=== PATIENT | female | born 1995 | race Caucasian/White ===

== ENCOUNTER 2021-01-12 11:45 | Outpatient (REF) | payer OTHER, SELFPAY ==
[2021-01-13 10:32] LABS: BV Int Neg Control Negative (Negative); BV Int Pos Control Positive (Positive)
== END 2021-01-12 11:46 | disposition home or self-care (01) ==
LOC: HO.LNP 11:45
PROVIDERS: Visit Provider Hospitalist
DX: N89.8 Other specified noninflammatory disorders of vagina (principal)
CPT/HCPCS: 87480; 87510; 87660

== ENCOUNTER 2021-01-27 14:44 | Emergency (ER) | payer OTHER, SELFPAY ==
[2021-01-27 15:01] VITALS: BP 137/95; PULSE 80; RESP 20; TEMP 36.6; O2SAT 97; BMI 28.7
[2021-01-27 16:13] LABS: Appearance Urine CLEAR; Color Urine YELLOW; Glucose Urine UA NEG (NEG); Leukocyte Esterase Urine NEG (NEG); Nitrite Urine NEG (NEG); Specific Gravity - Urine 1.015 (1.005-1.025); UACC Culture Trigger NO; Urine Blood TRACE (NEG); Urine Ketones NEG (NEG); Urine Protein NEG (NEG-TRACE)
[2021-01-27 16:15] LABS: UPreg QC Valid YES; Urine Pregnancy NEGATIVE (NEGATIVE)
[2021-01-27 16:22] LABS: Bacteria Urine TRACE /LPF; Mucus Urine 1+ /LPF; Squamous Epithelial Cell Urine 1+ /LPF; WBC Urine 0 /HPF (0-4)
--- NOTE | 2021-01-27 16:34 | ED_ITS ---
HPI - Female Genitourinary General Chief complaint: Urogenital-Female Stated complaint: ABD PAIN Time Seen by Provider: 01/27/21 16:20 Source: patient Mode of arrival: ambulatory History of Present Illness HPI Narrative: 25-year-old female with no significant past medical history presenting to the ED complaining of intermittent LLQ abdominal pain radiating to left groin x3 days. Admits to associated nausea. Also reports vaginal dischar ge. Is sexually active with 1 partner, does have concern for STI. Denies fever, chills, vomiting, new or worsening diarrhea/constipation, dysuria/hematuria, vaginal bleeding, flank pain Related Data Previous Rx's Medication Instructions Recorded fluconazole 150 mg tablet 150 mg PO Q OTHER DAY 3 Days #2 tab 01/12/21 doxycycline hyclate 100 mg tablet 100 mg PO BID 7 Days #14 tab 01/27/21 fluconazole 150 mg tablet 150 mg PO DAILY #1 tab 01/27/21 (Diflucan) Allergies Allergy/AdvReac Type Severity Reaction Status Date / Time No Known Allergies Allergy Unverified 02/06/20 17:02 [No Known Allergies*] Review of Systems Review of Systems: Constitutional: No Fever, No Chills, No Fatigue, No [place] ENT/Mouth: No Ear Pain, No sore throat Eyes: No Eye Pain, No Swelling Cardiovascular: No Chest Pain, No SOB Respiratory: No Cough, No Dyspnea Gastrointestinal: + Nausea, No Vomiting, No Diarrhea, No Constipation, + Abdominal pain Genitourinary: No irregular bleeding, No Dysuria, No Urinary Frequency, No Hematuria, No Flank Pain, + vaginal discharge Musculoskeletal: No joint pain, No Myalgias Skin: No Skin Lesions, No rash Neuro: No Weakness, No Paresthesias, No Dizziness, No Headache [facility] Past Medical History Attestation statement: The following information was validated with the patient. Social History Social History Alcohol intake: never Patient Tobacco Use Status: Never used Tobacco Use of substances other than those prescribed or required for medical reasons: No Advance Directives: No Advance Directives Information Provided: No Physical Exam Vital Signs: Vital Signs: Last Vital Signs Temp 97.8 F 01/27/21 15:01 Pulse 80 01/27/21 15:01 Resp 20 09/08/21 15:01 BP 137/95 H 01/27/21 15:01 Pulse Ox 97 01/27/21 15:01 Body Mass Index 28.7 Const: General: cooperative, healthy appearing and no acute distress Orientation/consciousness: patient oriented x3 Limitations: no limitations HENMT: Head: Yes normal to inspection Ears: hearing grossly normal bilaterally General nose exam: Normal external nose present Face and sinu s: Yes normal facial exam Eyes: General: appearance normal, both eyes and all related structures EOM: EOMs intact bilaterally Neck: Neck: Yes normal visual inspection Resp: Effort & Inspection: normal respiratory effort and no respiratory distress Cardio: Rate: regular rate Heart sounds: S1 normal heart sound present and S2 normal heart sound present GI: Inspection: Yes normal to inspection Palpation (GI): Soft to palpation, nontender, no guarding and not rigid : General: Yes no CVA tenderness Speculum Exam - Cervix: nontender Bimanual exam- vagina & uterus: normal bimanual exam and No Cervical tenderness present Bimanual Exam- Adnexa, other: normal adnexae, no masses and no tenderness OB/external & speculum: vaginal discharge (thin clear and thick white vaginal discharge noted); No no bleeding Back/Spine/Pelvis: Back: no CVA tenderness Skin: Rashes: no rashes Wounds: no wounds Neuro: General: patient oriented x3 Gait exam (Neuro): Normal gait present Extrem: General: Yes normal to inspection Course Course Course Narrative: -1800--no leukocytosis. Labs otherwise unremarkable. UA negative. Urine negative. > discussed with patient including worrisome signs and symptoms and strict ret urn precautions. Discussed with patient she needs to follow up with PCP/OBGYN. She verbalized understanding feel safe for discharge home MDM - Female Genitourinary MDM Narrative Medical decision making narrative: 25-year-old female with no significant past medical history presenting to the ED complaining of intermittent LLQ abdominal pain radiating to left groin x3 days. Admits to associated nausea. Also reports vaginal discharge. Is sexually active with 1 partner, does have concern for STI. On exam VS as, NAD, abdomen soft/nontender, no CVAT. On pelvic thin clear and thick white vaginal discharge noted. No CMT or adnexal tenderness. Concern for STI/yeast infection. Low concern for PID/ovarian cyst/torsion. Unlikely appendicitis/diverticulitis. Rule out . Plan: Labs, UA, STI testing. Patient is agreeable to empiric STI treatment in the ED. Will give p.o. Diflucan, Flagyl, and IM Ceftriaxone Medical Records Attestation: I reviewed the patient's medical records. Lab Data Attestation: I reviewed the patient's lab results. Result diagrams: 01/27/21 16:38 01/27/21 16:38 Labs: Lab Results 01/27/21 01/27/21 01/27/21 Range/Units 16:05 16:05 16:38 WBC 6.3 (4.8-10.8) X10*3/uL RBC 4.46 (4.20-5.50) X10*6/uL Hgb 13.9 (12.0-16.0) g/dl Hct 42.0 (37-47) % MCV 94.2 (80-98) fL MCH 31.2 (27.0-33.0) pg MCHC 33.1 (31.0-35.0) g/dl RDW 11.9 (11.0-16.0) % Plt Count 380 (160-400) X10*3/uL MPV 10.0 (9.4-12.3) fL Immature Gran % (Auto) 0.0 (0.0-0.4) % Neut % (Auto) 61.4 (45-73) % Lymph % (Auto) 34.0 (20-40) % [place] % (Auto) 3.8 (2-11) % Eos % (Auto) 0.5 (0-4) % Baso % (Auto) 0.3 (0-2) % Lymph # (Auto) 2.1 (1.2-4.9) X10*3/uL [place] # (Auto) 0.2 (0.1-1.2) X10*3/uL Eos # (Auto) 0.0 (0.0-0.4) X10*3/uL Baso # (Auto) 0.0 (0.0-0.2) X10*3/uL Abs Immat Gran (auto) 0.00 (0.00-0.03) X10*3/uL Absolute Neuts (auto) 3.9 (2.0-8.3) X10*3/uL Absolute Nucleated RBC 0.000 (0.0-0.012) X10*3/uL Nucleated RBC % (auto) 0.0 (0.0-0.2) /100WBC Sodium (135-145) mmol/L Potassium (3.3-5.1) mmol/L Chloride (96-108) mmol/L Carbon Dioxide (22-29) mmol/L Anion Gap (12-20) BUN (9-16) mg/dL Creatinine (0.5-1.4) mg/dL Estim Creat Clear Calc Estimated GFR Random Glucose (60-115) mg/dL Calcium (8.4-10.2) mg/dL Magnesium (1.6-2.6) mg/dL Total Bilirubin (0.0-1.0) mg/dL Direct Bilirubin (0.0-0.5) mg/dL AST (5-31) U/L ALT (0-31) U/L Alkaline Phosphatase (39-117) U/L Total Protein (6.5-8.0) g/dL Albumin (3.5-5.0) g/dL Lipase (8-78) U/L Urine Color YELLOW Urine Appearance CLEAR Urine pH 8.0 (5.0-8.0) Ur Specific [place] 1.015 (1.005-1.025) Urine Protein NEG (NEG-TRACE) MG/DL Urine Glucose (UA) NEG (NEG) MG/DL Urine Ketones NEG (NEG) MG/DL Urine Blood TRACE (NEG) Urine Nitrite NEG (NEG) Ur Leukocyte Esterase NEG (NEG) Urine RBC 1-4 (0) /HPF Urine WBC 0 (0-4) /HPF Ur Squamous Epith Cells 1+ /LPF Urine Bacteria TRACE /LPF Urine Mucus 1+ /LPF Urine Test NEGATIVE (NEGATIVE) 01/27/21 Range/Units 16:38 WBC (4.8-10.8) X10*3/uL RBC (4.20-5.50) X10*6/uL Hgb (12.0-16.0) g/dl Hct (37-47) % MCV (80-98) fL MCH (27.0-33.0) pg MCHC (31.0-35.0) g/dl RDW (11.0-16.0) % Plt Count (160-400) X10*3/uL MPV (9.4-12.3) fL Immature Gran % (Auto) (0.0-0.4) % Neut % (Auto) (45-73) % Lymph % (Auto) (20-40) % [place] % (Auto) (2-11) % Eos % (Auto) (0-4) % Baso % (Auto) (0-2) % Lymph # (Auto) (1.2-4.9) X10*3/uL [place] # (Auto) (0.1-1.2) X10*3/uL Eos # (Auto) (0.0-0.4) X10*3/uL Baso # (Auto) (0.0-0.2) X10*3/uL Abs Immat Gran (auto) (0.00-0.03) X10*3/uL Absolute Neuts (auto) (2.0-8.3) X10*3/uL Absolute Nucleated RBC (0.0-0.012) X10*3/uL Nucleated RBC % (auto) (0.0-0.2) /100WBC Sodium 144 (135-145) mmol/L Potassium 5.0 (3.3-5.1) mmol/L Chloride 109 H (96-108) mmol/L Carbon Dioxide 27 (22-29) mmol/L Anion Gap 13 (12-20) BUN 7 L (9-16) mg/dL Creatinine 0.81 (0.5-1.4) mg/dL Estim Creat Clear Calc 131.9 Estimated GFR > 60 Random Glucose 97 (60-115) mg/dL Calcium 10.2 (8.4-10.2) mg/dL Magnesium 2.1 (1.6-2.6) mg/dL Total Bilirubin 0.6 (0.0-1.0) mg/dL Direct Bilirubin 0.2 (0.0-0.5) mg/dL AST 12 (5-31) U/L ALT 14 (0-31) U/L Alkaline Phosphatase 64 (39-117) U/L Total Protein 7.3 (6.5-8.0) g/dL Albumin 4.6 (3.5-5.0) g/dL Lipase 14 (8-78) U/L Urine Color Urine Appearance Urine pH (5.0-8.0) Ur Specific [place] (1.005-1.025) Urine Protein (NEG-TRACE) MG/DL Urine Glucose (UA) (NEG) MG/DL Urine Ketones (NEG) MG/DL Urine Blood (NEG) Urine Nitrite (NEG) Ur Leukocyte Esterase (NEG) Urine RBC (0) /HPF Urine WBC (0-4) /HPF Ur Squamous Epith Cells /LPF Urine Bacteria /LPF Urine Mucus /LPF Urine Test (NEGATIVE) Discharge Plan Discharge Clinical Impression: Vaginal discharge Abdominal pain Qualifiers: Abdominal location: left lower quadrant Qualified Code(s): R10.32 - Left lower quadrant pain Patient Disposition: Home, Self-Care Instructions: Sexually Transmitted Diseases (ED), Abdominal Pain (ED) Additional Instructions: Your blood work was unremarkable Your urine was not infected You were tested for sexually transmitted infections today, the results should be back in 2-3 days, we will call you for positive results only Your treated for gonorrhea and chlamydia. Doxycycline is an antibiotic that will complete this treatment, take as prescribed, avoid the sun when on doxycycline as well making sensitive/prone to sunburn Avoid sexual contact until you know the results of her cultures. Informed partners of her results today can be tested and treated as well If her symptoms persist or worsen, abdominal pain persist or worsen/becomes unbearable, you are unable to eat or drink, vaginal discharge worsens please return to the ED Follow-up with your doctor an OBGYN Prescriptions: New fluconazole [Diflucan] 150 mg tablet 150 mg PO DAILY Qty: 1 RF: 0 doxycycline hyclate 100 mg tablet 100 mg PO BID 7 Days Qty: 14 RF: 0 No Action fluconazole 150 mg tablet 150 mg PO Q OTHER DAY 3 Days Qty: 2 RF: 0 Referrals: Physician,Unknown [Primary Care Provider] - 2 days Farooq Rios MD [Physician] - 1 week
[2021-01-27] MEDS: Ondansetron ODT 4 MG TAB.RAPDIS TRANSLINGU (16:39)
[2021-01-27 16:41] LABS: MANUAL DIFF FLAG NO
[2021-01-27 16:46] LABS: Basophils Percent Auto 0.3 % (0-2); Eosinophils Percent Auto 0.5 % (0-4); Hemoglobin 13.9 g/dl (12.0-16.0); Lymphocytes Absolute Auto 2.1 X10*3/uL (1.2-4.9); Mean Corpuscular HGB Conc 33.1 g/dl (31.0-35.0); Mean Corpuscular Hemoglobin 31.2 pg (27.0-33.0); Mean Corpuscular Volume 94.2 fL (80-98); Monocytes Absolute Auto 0.2 X10*3/uL (0.1-1.2); Monocytes Percent Auto 3.8 % (2-11); Neutrophils Absolute Auto 3.9 X10*3/uL (2.0-8.3); Neutrophils Percent Auto 61.4 % (45-73); Platelet Count 380 X10*3/uL (160-400); Red Blood Count 4.46 X10*6/uL (4.20-5.50); Red Cell Distribution Width 11.9 % (11.0-16.0); White Blood Count 6.3 X10*3/uL (4.8-10.8)
[2021-01-27 17:14] LABS: Alanine Aminotransferase 14 U/L (0-31); Albumin Level 4.6 g/dL (3.5-5.0); Alkaline Phosphatase 64 U/L (39-117); Anion Gap 13 (12-20); Aspartate Amino Transferase 12 U/L (5-31); Bilirubin Direct 0.2 mg/dL (0.0-0.5); Bilirubin Total 0.6 mg/dL (0.0-1.0); Blood Urea Nitrogen 7 mg/dL (9-16); Carbon Dioxide 27 mmol/L (22-29); Chloride 109 mmol/L (96-108); Creatinine Clr Calc Pharmacy 131.9; Estimated Glomerular Filt Rate > 60; Glucose Random 97 mg/dL (60-115); Lipase 14 U/L (8-78); Magnesium 2.1 mg/dL (1.6-2.6); Sodium 144 mmol/L (135-145); Total Protein 7.3 g/dL (6.5-8.0)
[2021-01-27 17:20] LABS: Calcium 10.2 mg/dL (8.4-10.2)
[2021-01-27] MEDS: cefTRIAXone sodium 500 MG, Lidocaine HCl 1 % MPF 1 ML IM (17:40)
[2021-01-27] MEDS: Fluconazole 150 MG TABLET PO (17:40)
[2021-01-28 05:24] LABS: CT PCR NOT DETECTED (Not Detect.); NG PCR NOT DETECTED (Not Detect.)
[2021-01-28 08:34] LABS: BV Int Neg Control Negative (Negative); BV Int Pos Control Positive (Positive)
== END 2021-01-27 18:18 | disposition home or self-care (01) ==
PROVIDERS: Physician Assistant; Emergency Provider Emergency Medicine Emergency Medical Services
DX: N89.8 Other specified noninflammatory disorders of vagina (principal); R10.32 Left lower quadrant pain; Z20.2 Contact with and (suspected) exposure to infections with a predominantly sexual mode of transmission; Z79.899 Other long term (current) drug therapy
CPT/HCPCS: 36415; 80048; 80076; 81001; 81025; 83690; 83735; 85025; 87480; 87491; 87510; 87591; 87660; 96372; 99284; J0696

== ENCOUNTER 2021-06-07 12:46 | Outpatient (REF) | payer OTHER, SELFPAY ==
[2021-06-08 05:44] LABS: CT PCR NOT DETECTED (Not Detect.); NG PCR NOT DETECTED (Not Detect.)
[2021-06-08 09:07] LABS: BV Int Neg Control Negative (Negative); BV Int Pos Control Positive (Positive)
== END 2021-06-07 12:47 | disposition home or self-care (01) ==
LOC: HO.LAB 12:46
PROVIDERS: PCP Internal Medicine; Visit Provider Advanced Practice Midwife
DX: Z30.09 Encounter for other general counseling and advice on contraception (principal); N89.8 Other specified noninflammatory disorders of vagina
CPT/HCPCS: 87480; 87491; 87510; 87591; 87660; 88142

== ENCOUNTER 2021-09-08 12:17 | Emergency (ER) | payer OTHER, SELFPAY ==
--- NOTE | ~2021-09-08 | XR_ITS ---
EXAMINATION: XR CHEST CLINICAL INFORMATION: Chest pain COMPARISON: None TECHNIQUE: Frontal view of the chest was obtained. FINDINGS: The heart and mediastinum are normal for technique. No mass or adenopathy. Normal heart size. No pulmonary edema. Indistinct lower heart borders bilaterally have the appearance of small epicardial fat pads. No focal pneumonia. Normal lung volumes. No effusion or pneumothorax. Nonobstructive gas pattern. No free air. There is an idiopathic convex right thoracic convex left lumbar scoliosis. No acute focal osseous abnormality seen. XR/XR chest 1V IMPRESSION: No acute cardiopulmonary process. Idiopathic scoliosis.
--- NOTE | 2021-09-08 12:54 | ECG_ITS ---
Test Reason : chest pain Blood Pressure : / mmHG Vent. Rate : 060 BPM Atrial Rate : 060 BPM P-R Int : 134 ms QRS Dur : 100 ms QT Int : 388 ms P-R-T Axes : 002 076 035 degrees QTc Int : 388 ms Normal sinus rhythm Normal ECG No previous ECGs available Referred By: Generic ED Physician Electronically Signed By:MICHELLE GREENFIELD MD
[2021-09-08 12:55] VITALS: BP 128/75; PULSE 75; RESP 18; TEMP 36.9; O2SAT 98; BMI 28.9
[2021-09-08 13:14] LABS: MANUAL DIFF FLAG NO
[2021-09-08 13:16] LABS: Basophils Percent Auto 0.3 % (0-2); Eosinophils Percent Auto 0.1 % (0-4); Hematocrit 39.9 % (37.0-47.0); Hemoglobin 13.1 g/dl (12.0-16.0); Imm Gran Abs Auto 0.03 X10*3/uL (0.00-0.03); Imm Gran Pct Auto 0.3 % (0.0-0.4); Lymphocytes Absolute Auto 2.6 X10*3/uL (1.2-4.9); Lymphocytes Percent Auto 25.6 % (20-40); Mean Corpuscular HGB Conc 32.8 g/dl (31.0-35.0); Mean Corpuscular Hemoglobin 30.8 pg (27.0-33.0); Mean Corpuscular Volume 93.9 fL (80.0-98.0); Mean Platelet Volume 9.6 fL (9.4-12.3); Monocytes Absolute Auto 0.2 X10*3/uL (0.1-1.2); Monocytes Percent Auto 2.4 % (2-11); Neutrophils Absolute Auto 7.2 x10*3/uL (2.0-8.3); Neutrophils Percent Auto 71.3 % (45-73); Platelet Count 382 X10*3/uL (160-400); Red Blood Count 4.25 X10*6/uL (4.20-5.50); Red Cell Distribution Width 11.4 % (11.0-16.0); White Blood Count 10.1 X10*3/uL (4.8-10.8)
--- NOTE | 2021-09-08 13:31 | ED_ITS ---
HPI - Chest Pain General Chief Complaint: Chest Pain <LIZBETH Ayers Last Filed: 09/08/21 15:03> Stated Complaint: chest cold, chest/ back pain, asthmatic <LIZBETH Ayers - Last Filed: 09/08/21 15:03> Time Seen by Provider: 09/08/21 13:26 <LIZBETH Ayers Last Filed: 09/08/21 15:03> Source: patient <LIZBETH Ayers Last Filed: 09/08/21 15:03> Mode of arrival: ambulatory <LIZBETH Ayers Last Filed: 09/08/21 15:03> Limitations: no limitations <LIZBETH Ayers Last Filed: 09/08/21 15:03> History of Present Illness HPI narrative: Patient is a 26 year old female presenting to the emergency department today with a cough and chest pain. Patient states that she has had a cold for 2 weeks now and is now having some chest pain. Patient states that this happens every year and every year the cough causes chest pain. Patient denies any dizziness, lightheadedness, abdominal pain, nausea, vomiting, fever, chills, blurry vision, double vision, loss of vision, difficulty breathing, shortness of breath, back p ain, night sweats, pain with urination, increased urinary frequency, increased urinary urgency, blood in her urine or stool, syncope or a near syncopal episode, recent trauma or falls, bowel incontinence, bladder incontinence, bowel retention, bladder retention, or any other complaints at this time. <LIZBETH Ayers Last Filed: 09/08/21 15:03> MD complaint: chest pain <LIZBETH Ayers - Last Filed: 09/08/21 15:03> Onset (ago): day(s) <LIZBETH Ayers Last Filed: 09/08/21 15:03> Timing of current episode: constant <LIZBETH Ayers Last Filed: 09/08/21 15:03> Pain location: substernal <LIZBETH Ayers Last Filed: 09/08/21 15:03> Severity: mild <LIZBETH Ayers Last Filed: 09/08/21 15:03> Pain scale (0-10): 3 <LIZBETH Ayers - Last Filed: 09/08/21 15:03> Quality: dull <LIZBETH Ayers - Last Filed: 09/08/21 15:03> Relieving factors: nothing <LIZBETH Ayers - Last Filed: 09/08/21 15:03> Exacerbating factors: nothing <LIZBETH Ayers - Last Filed: 09/08/21 15:03> Context: recent illness <LIZBETH Ayers - Last Filed: 09/08/21 15:03> Treatment prior to arrival: none <LIZBETH Ayers - Last Filed: 09/08/21 15:03> Risk Factors Coronary artery disease risk factors: none <LIZBETH Ayers - Last Filed: 09/08/21 15:03> Thoracic aortic dissection risk factors: none <LIZBETH Ayers - Last Filed: 09/08/21 15:03> Related Data Home Medications: Previous Rx's Medication Instructions Recorded albuterol sulfate 90 mcg/actuation 2 puff INHALATION QID PRN #8.5 g 03/18/21 aerosol inhaler (ProAir HFA) drospirenone 3 mg-ethinyl 1 tab PO DAILY #84 tab 03/18/21 estradiol 0.03 mg tablet (Rachael (28)) escitalopram oxalate 10 mg tablet 10 mg PO DAILY #30 tab 03/18/21 (Lexapro) <LIZBETH Ayers - Last Filed: 09/08/21 15:03> Allergies/Adverse Reactions: Allergies Allergy/AdvReac Type Severity Reaction Status Date / Time No Known Allergies Allergy Verified 09/08/21 12:58 [No Known Allergies*] <LIZBETH Ayers - Last Filed: 09/08/21 15:03> Review of Systems Constitutional: Constitutional: Reports no additional constitutional complaints, Denies chills, Denies fever(s) and Denies night sweats <LIZBETH Ayers - Last Filed: 09/08/21 15:03> Eyes: Eyes: Reports no additional eye complaints, Denies blurry vision, Denies change in vision, Denies diplopia, Denies eye discharge, Denies loss of vision and Denies eye pain <LIZBETH Ayers - Last Filed: 09/08/21 15:03> ENT: Denies dizziness <LIZBETH Ayers Last Filed: 09/08/21 15:03> Cardiovascular: Cardiovascular: Reports no additional cardiovascular complaints, Reports chest pain, Denies lightheadedness, Denies Loss of C onsciousness and Denies dyspnea <LIZBETH Ayers - Last Filed: 09/08/21 15:03> Respiratory: Respiratory: Reports no additional respiratory complaints, Reports cough and Denies dyspnea <LIZBETH Ayers - Last Filed: 09/08/21 15:03> Gastrointestinal: Gastrointestinal: Reports no additional gastrointestinal complaints, Denies abdominal pain, Denies melena, Denies hematochezia, Denies change in bowel habits and Denies change in stool character <LIZBETH Ayers - Last Filed: 09/08/21 15:03> Genitourinary: Genitourinary: Denies hematuria, Denies urinary frequency, Denies dysuria, Denies urinary incontinence, Denies urinary hesitancy and Denies urinary urgency <LIZBETH Ayers - Last Filed: 09/08/21 15:03> Musculoskeletal: Musculoskeletal: Reports no additional musculoskeletal complaints, Denies numbness and Denies tingling <LIZBETH Ayers - Last Filed: 09/08/21 15:03> Neurologic: Denies dizziness, Denies loss of vision, Denies numbness and Denies tingling <LIZBETH Ayers - Last Filed: 09/08/21 15:03> Psychiatric: Psychiatric: Reports no additional psychiatric complaints <LIZBETH Ayers Last Filed: 09/08/21 15:03> Endocrine: Endocrine: Reports no additional endocrine complaints <LIZBETH Ayers - Last Filed: 09/08/21 15:03> Hematologic/Lymphatic: Hematologic/Lymphatic: Reports no additional hematologic/lymphatic complaints <LIZBETH Ayers - Last Filed: 09/08/21 15:03> Allergic/Immunologic: Allergic/Immunologic: Reports no additional allergic/immunologic complaints <LIZBETH Ayers Last Filed: 09/08/21 15:03> PMFSH Past Medical History Attestation statement: The following information was validated with the patient. <LIZBETH Ayers Last Filed: 09/08/21 15:03> Source: old records reviewed <LIZBETH Ayers - Last Filed: 09/08/21 15:03> Medical History: Medical History Annual physical exam Anxiety Asthma <LIZBETH Ayers - Last Filed: 09/08/21 15:03> Family History Family History: Family History Paternal Uncle Substance use disorder Mental health disorder Paternal Aunt Substance use disorder Mental health disorder Maternal Aunt Substance use disorder Mental health disorder Maternal Uncle Substance use disorder Mental health disorder Maternal Grandfather Substance use disorder Paternal Grandmother Mental health disorder <LIZBETH Ayers - Last Filed: 09/08/21 15:03> Social History Social History: Social History Housing: House Alcohol intake: never Patient Tobacco Use Status: Current everyday Tobacco user Cigarettes Per Day: 6 Smoked in Last 30 Days: Yes e-Cigarette/Vaping Use: Never Used Use of substances other than those prescribed or required for medical reasons: Yes Substance Use Type: Marijuana Advance Directives: No Advance Directives Information Provided: No Current occupational status: employed <LIZBETH Ayers - Last Filed: 09/08/21 15:03> Physical Exam Vital Signs: Vital Signs: Last Vital Signs Temp 98.6 F 09/08/21 14:23 Pulse 58 09/08/21 14:23 Resp 13 09/08/21 14:23 BP 121/73 09/08/21 14:23 Pulse Ox 98 09/08/21 14:23 BMI result Body Mass Index 28.9 <LIZBETH Ayers - Last Filed: 09/08/21 15:03> Const: General: cooperative, no acute distress, alert and awake <LIZBETH Ayers - Last Filed: 09/08/21 15:03> Nutritional Appearance: well nourished <LIZBETH Ayers - Last Filed: 09/08/21 15:03> Orientation/consciousness: patient oriented x3 <LIZBETH Ayers - Last Filed: 09/08/21 15:03> Limitations: no limitations <LIZBETH Ayers - Last Filed: 09/08/21 15:03> HEENT: Head: Yes normal to inspection and Yes atraumatic <Juana Guevara MA - Last Filed: 09/08/21 15:03> Ears: hearing grossly normal bilaterally and external ears normal <Juana Guevara MA - Last Filed: 09/08/21 15:03> General nose exam: Normal external nose present, no nasal discharge noted and no epistaxis <Juana Guevara MA - Last Filed: 09/08/21 15:03> Face and sinus: Yes normal facial exam, No abrasion and No laceration <Juana Guevara MA - Last Filed: 09/08/21 15:03> Mouth: Normal oral and palatal mucosa present, no drooling and no muffled voice <Juana Guevara MA - Last Filed: 09/08/21 15:03> Eyes: General: appearance normal, both eyes and all related structures <Juana Guevara MA - Last Filed: 09/08/21 15:03> Periorbital: periorbital findings normal <Juana Guevara MA - Last Filed: 09/08/21 15:03> Eyelids: Yes eyelids normal <Juana Guevara MA - Last Filed: 09/08/21 15:03> Conjunctivae: conjunctivae normal <Juana Guevara MA - Last Filed: 09/08/21 15:03> Pupils: Equal, round and reactive pupils present <Juana Guevara MA - Last Filed: 09/08/21 15:03> EOM: EOMs intact bilaterally <Juana Guevara MA - Last Filed: 09/08/21 15:03> Neck: Neck: Yes normal visual inspection, Yes full ROM and Yes no lymphadenopathy <Juana Guevara MA - Last Filed: 09/08/21 15:03> Chest: Chest palpation & inspection: normal inspection of the chest <LIZBETH Ayers - Last Filed: 09/08/21 15:03> Resp: Effort & Inspection: normal respiratory effort and able to speak in complete sentences <LIZBETH Ayers - Last Filed: 09/08/21 15:03> Auscultation: clear to auscultation bilaterally <Juana Guevara PA - Last Filed: 09/08/21 15:03> Cardio: Rate: regular rate <Juana Guevara PA - Last Filed: 09/08/21 15:03> Rhythm: regular rhythm <Juana Guevara PA - Last Filed: 09/08/21 15:03> GI: Inspection: Yes normal to inspection <Juana Guevara PA - Last Filed: 09/08/21 15:03> Neuro: General: patient oriented x3 and moves all extremities <Juana Laurentsavannah PA - Last Filed: 09/08/21 15:03> Cranial nerves: Yes Equal, round and reactive pupils present <Juana Guevara PA - Last Filed: 09/08/21 15:03> Cognition (Neuro): normal cognition <Juana Laurentsavannah PA - Last Filed: 09/08/21 15:03> Motor exam (neuro): 5/5 motor strength present throughout <Juana Guevara PA - Last Filed: 09/08/21 15:03> Sensory Exam: Normal double simultaneous stimulation for sensation <Juana Laurentsavannah PA - Last Filed: 09/08/21 15:03> Coordination: ojnvic-fl-tmiu test normal <Juana Guevara PA - Last Filed: 09/08/21 15:03> Extrem: General: Yes normal to inspection, Yes full ROM and Yes capillary refill normal <Juana Guevara PA - Last Filed: 09/08/21 15:03> Psych: Appearance: grossly normal <Juana Laurentsavannah PA - Last Filed: 09/08/21 15:03> Mental Status: mental status grossly normal <Juana Laurentsavannah PA - Last Filed: 09/08/21 15:03> Affect: normal affect <Juana Laurentsavannah PA - Last Filed: 09/08/21 15:03> Attitude: cooperative <Juana Laurentsavannah PA - Last Filed: 09/08/21 15:03> Thought process: Normal thought process present <Juana Laurentsavannah PA - Last Filed: 09/08/21 15:03> Thought content: Normal thought content present <Juana Laurentsavannah PA - Last Filed: 09/08/21 15:03> Insight: Good insight present (Psych) <Juana Ismael PA - Last Filed: 09/08/21 15:03> MDM - Chest Pain MDM Narrative Medical decision making narrative: Patient is a 26 year old female presenting to the emergency department today with a cough and chest pain. Patient's physical exam was unremarkable. Patient's blood work was unremarkable. Patient's EKG was unremarkable. Patient's chest x- ray showed no acute process. I explained my physical exam findings as well as all test results to the patient. I answered all questions asked by the patient. I stressed the importance of the patient taking her medication as prescribed. I stressed the importance of the patient following up with her primary care provider. I stressed the importance of the patient returning to the emergency department immediately if her symptoms were to worsen or if she were to develop any dizziness, shortness of breath, difficulty breathing, chest pain, blurry vision, loss of vision, nausea, vomiting, abdominal pain, fever, chills, back pain, or any other complaints. Patient verbalized agreement and understanding with this treatment plan and discharge. <LIZBETH Ayers - Last Filed: 09/08/21 15:03> Differential Diagnosis Differential diagnosis: costochondritis, pneumonia, cough <LIZBETH Ayers - Last Filed: 0 09/08/21 15:03> Medical Records Data Attestation: I reviewed the patient's medical records. <LIZBETH Ayers - Last Filed: 09/08/21 15:03> Lab Data Attestation: I reviewed the patient's lab results. <LIZBETH Ayers - Last Filed: 09/08/21 15:03> Result diagrams: : 09/08/21 13:07 09/08/21 13:08 <LIZBETH Ayers - Last Filed: 09/08/21 15:03> Labs: Lab Results 09/08/21 09/08/21 09/08/21 Range/Units 13:07 13:07 13:08 WBC 10.1 (4.8-10.8) X10*3/uL RBC 4.25 (4.20-5.50) X10*6/uL Hgb 13.1 (12.0-16.0) g/dl Hct 39.9 (37.0-47.0) % MCV 93.9 (80.0-98.0) fL MCH 30.8 (27.0-33.0) pg MCHC 32.8 (31.0-35.0) g/dl RDW 11.4 (11.0-16.0) % Plt Count 382 (160-400) X10*3/uL MPV 9.6 (9.4-12.3) fL Immature Gran % (Auto) 0.3 (0.0-0.4) % Neut % (Auto) 71.3 (45-73) % Lymph % (Auto) 25.6 (20-40) % Kern % (Auto) 2.4 (2-11) % Eos % (Auto) 0.1 (0-4) % Baso % (Auto) 0.3 (0-2) % Lymph # (Auto) 2.6 (1.2-4.9) X10*3/uL Kern # (Auto) 0.2 (0.1-1.2) X10*3/uL Eos # (Auto) 0.0 (0.0-0.4) X10*3/uL Baso # (Auto) 0.0 (0.0-0.2) X10*3/uL Abs Immat Gran (auto) 0.03 (0.00-0.03) X10*3/uL Absolute Neuts (auto) 7.2 (2.0-8.3) x10*3/uL Absolute Nucleated RBC 0.000 (0.0-0.012) X10*3/uL Nucleated RBC % (auto) 0.0 (0.0-0.2) /100WBC Sodium 137 (135-145) mmol/L Potassium 4.7 (3.3-5.1) mmol/L Chloride 103 (96-108) mmol/L Carbon Dioxide 25 (22-29) mmol/L Anion Gap 14 (12-20) BUN 18 H (9-16) mg/dL Creatinine 0.83 (0.5-1.4) mg/dL Estim Creat Clear Calc 128.1 Estimated GFR > 60 Random Glucose 82 (60-115) mg/dL Calcium 9.9 (8.4-10.2) mg/dL Troponin I High Sens 6.0 (<3.5-17.0) ng/L COVID-19 (JACOB) (Negative) COVID-19 Clin Com Influenza Type A (RAFAEL) (Negative) Influenza Type B (RAFAEL) (Negative) Influenza A & B Note 09/08/21 09/08/21 Range/Units 13:47 13:47 WBC (4.8-10.8) X10*3/uL RBC (4.20-5.50) X10*6/uL Hgb (12.0-16.0) g/dl Hct (37.0-47.0) % MCV (80.0-98.0) fL MCH (27.0-33.0) pg MCHC (31.0-35.0) g/dl RDW (11.0-16.0) % Plt Count (160-400) X10*3/uL MPV (9.4-12.3) fL Immature Gran % (Auto) (0.0-0.4) % Neut % (Auto) (45-73) % Lymph % (Auto) (20-40) % Kern % (Auto) (2-11) % Eos % (Auto) (0-4) % Baso % (Auto) (0-2) % Lymph # (Auto) (1.2-4.9) X10*3/uL Kern # (Auto) (0.1-1.2) X10*3/uL Eos # (Auto) (0.0-0.4) X10*3/uL Baso # (Auto) (0.0-0.2) X10*3/uL Abs Immat Gran (auto) (0.00-0.03) X10*3/uL Absolute Neuts (auto) (2.0-8.3) x10*3/uL Absolute Nucleated RBC (0.0-0.012) X10*3/uL Nucleated RBC % (auto) (0.0-0.2) /100WBC Sodium (135-145) mmol/L Potassium (3.3-5.1) mmol/L Chloride (96-108) mmol/L Carbon Dioxide (22-29) mmol/L Anion Gap (12-20) BUN (9-16) mg/dL Creatinine (0.5-1.4) mg/dL Estim Creat Clear Calc Estimated GFR Random Glucose (60-115) mg/dL Calcium (8.4-10.2) mg/dL Troponin I High Sens (<3.5-17.0) ng/L COVID-19 (JACOB) Negative (Negative) COVID-19 Clin Com See Note Influenza Type A (RAFAEL) Negative (Negative) Influenza Type B (RAFAEL) Negative (Negative) Influenza A & B Note See Note <LIZBETH Ayers - Last Filed: 09/08/21 15:03> Imaging Data Chest x-ray: Attestation: I personally reviewed and interpreted this imaging study as follows: <LIZBETH Ayers - Last Filed: 09/08/21 15:03> My impression: No acute process. <LIZBETH Ayers - Last Filed: 09/08/21 15:03> Radiologist's impression: EXAMINATION: XR CHEST CLINICAL INFORMATION: Chest pain COMPARISON: None TECHNIQUE: Frontal view of the chest was obtained. FINDINGS: The heart and mediastinum are normal for technique. No mass or adenopathy. Normal heart size. No pulmonary edema. Indistinct lower heart borders bilaterally have the appearance of small epicardial fat pads. No focal pneumonia. Normal lung volumes. No effusion or pneumothorax. Nonobstructive gas pattern. No free air. There is an idiopathic convex right thoracic convex left lumbar scoliosis. No acute focal osseous abnormality seen. XR/XR chest 1V IMPRESSION: No acute cardiopulmonary process. Idiopathic scoliosis. Dictated By: Harjinder Rosenberg MD Signed By: Electronically signed by Harjinder Rosenberg MD 09/08/21 1323 <LIZBETH Ayers - Last Filed: 09/08/21 15:03> ECG Data ECG #1: Attestation: I personally reviewed and interpreted this ECG as follows: <LIZBETH Ayers - Last Filed: 09/08/21 15:03> ECG interpretation date: 09/08/21 <LIZBETH Ayers - Last Filed: 09/08/21 15:03> ECG interpretation time: 12:53 <LIZBETH Ayers - Last Filed: 09/08/21 15:03> Prior ECG tracings: not available for review <LIZBETH Ayers - Last Filed: 09/08/21 15:03> Interpretation: Vent. Rate: 060 BPM ? ? Atrial Rate: 060 BPM P-R Int: 134 ms? QRS Dur: 100 ms QT Int: 388 ms ? ? ? P-R-T Axes: 002 076 035 degrees QTc Int: 388 ms ? Normal sinus rhythm Normal ECG No previous ECGs available <LIZBETH yAers - Last Filed: 09/08/21 15:03> Discharge Plan Discharge Clinical Impression: Acute costochondritis <LIZBETH Ayers - Last Filed: 09/08/21 15:03> Patient Disposition: Home, Self-Care <LIZBETH Ayers - Last Filed: 09/08/21 15:03> Instructions: Costochondritis (ED) <LIZBETH Ayers - Last Filed: 09/08/21 15:03> Additional Instructions: Call if you need to discuss finding and establishing with a primary care provider. Follow up with your primary care provider. Return to the emergency department immediately if your symptoms worsen or if you develop any dizziness, shortness of breath, difficulty breathing, chest pain, blurry vision, loss of vision, nausea, vomiting, abdominal pain, fever, chills, back pain, or any other complaints. <LIZBETH Ayers - Last Filed: 09/08/21 15:03> Prescriptions: No Action albuterol sulfate [ProAir HFA] 90 mcg/actuation HFA aerosol inhaler 2 puff inhalation QID PRN (Reason: shortness of breath or wheezing) Qty: 8.5 4RF escitalopram oxalate [Lexapro] 10 mg tablet 10 mg PO DAILY Qty: 30 4RF drospirenone-ethinyl estradiol [Rachael (28)] 3-0.03 mg tablet 1 tab PO DAILY Qty: 84 3RF <LIZBETH Ayers - Last Filed: 09/08/21 15:03> Referrals: Physician,Unknown J [Primary Care Provider] - (Follow up with your PCP. ) <LIZBETH Ayers - Last Filed: 09/08/21 15:03> Interventions: ED Discharge Assessment Last Done: 09/08/21 15:02 <LIZBETH Ayers - Last Filed: 09/08/21 15:03> Discharge Date/Time: 09/08/21 15:03 <LIZBETH Ayers - Last Filed: 09/08/21 15:03> Print Language: [place] Rican <Juana Guevara PA - Last Filed: 09/08/21 15:03>
[2021-09-08 13:38] LABS: Anion Gap 14 (12-20); Blood Urea Nitrogen 18 mg/dL (9-16); Calcium 9.9 mg/dL (8.4-10.2); Carbon Dioxide 25 mmol/L (22-29); Chloride 103 mmol/L (96-108); Creatinine Clr Calc Pharmacy 128.1; Estimated Glomerular Filt Rate > 60; Glucose Random 82 mg/dL (60-115); Potassium 4.7 mmol/L (3.3-5.1); Sodium 137 mmol/L (135-145)
[2021-09-08 13:48] VITALS: BP 95/77; PULSE 71; RESP 16; TEMP 37.2; O2SAT 99
[2021-09-08 14:13] LABS: COVID-19 Test Negative (Negative); IDNOW Serial# 16C4AD1C; Influenza A Negative (Negative); Influenza B2 Negative (Negative)
[2021-09-08 14:23] VITALS: BP 121/73; PULSE 58; RESP 13; TEMP 37; O2SAT 98
== END 2021-09-08 15:03 | disposition home or self-care (01) ==
PROVIDERS: Physician Assistant Medical; Emergency Provider Emergency Medicine
DX: M94.0 Chondrocostal junction syndrome [Tietze] (principal); J45.909 Unspecified asthma, uncomplicated; F17.210 Nicotine dependence, cigarettes, uncomplicated; Z20.822 Contact with and (suspected) exposure to COVID-19
CPT/HCPCS: 36415; 71045; 80048; 84484; 85025; 87502; 87635; 93005; 99283; 99284

== ENCOUNTER 2021-11-23 10:27 | Emergency (ER) | payer OTHER, SELFPAY ==
--- NOTE | ~2021-11-23 | CT_ITS ---
EXAMINATION: CT ABDOMEN AND PELVIS WITHOUT CONTRAST CLINICAL INFORMATION: Left lower quadrant pain COMPARISON: None TECHNIQUE: Multidetector volumetric imaging was performed from the superior aspect of the liver through the pubic symphysis. Sagittal and coronal reformatted images were obtained on the technologist's workstation. This CT examination was performed using dose optimization techniques as appropriate, variously including the following: *Automated exposure control *Adjustment of mA and/or kV according to patient size (this includes techniques or standardized protocols for targeted exams where dose is matched to indication/reason for exam; i.e. extremities or head) *Use of iterative reconstruction technique DLP: 611 mGy-cm FINDINGS: LUNG BASES: The visualized lung bases are unremarkable. LIVER, GALLBLADDER, AND BILIARY TREE: The liver is normal in size, shape, and attenuation. No focal hepatic lesion or biliary ductal dilatation is present. The gallbladder is unremarkable with no evidence of radiopaque gallstones, gallbladder wall thickening, or obvious pericholecystic inflammatory changes. PANCREAS: Unremarkable. SPLEEN: Unremarkable. ADRENAL GLANDS: Unremarkable. KIDNEYS AND URETERS: There is a small 1 mm stone in the lower pole of the left kidney. There are small high attenuation areas in the central left kidney questionable for stones or gravel. There are ill-defined hypoechoic areas seen in both kidneys, in the medial lower pole right kidney measuring approximately 1 x 1.5 cm in the more central areas in the peripelvic left kidney and lower pole, largest area measuring 1.8 cm. Contrast-enhanced imaging of the kidneys should be considered if clinically indicated, particularly if there is suspicion of hilar nephritis. No hydronephrosis, ureteral dilatation or ureteral stone. BLADDER: Unremarkable. GASTROINTESTINAL TRACT: The small and large bowel are unremarkable. The appendix is unremarkable. ABDOMINAL WALL: No significant hernia is appreciated. LYMPH NODES: Normal. VASCULAR: Unremarkable. PELVIC VISCERA: Not well evaluated without contrast. OSSEOUS STRUCTURES: Unremarkable. CT/CT abdomen pelvis wo con IMPRESSION: Small 1 mm left renal stone. High attenuation areas seen centrally in the left kidney questionable for small stones or gravel, largest measuring 5 mm.. Heterogeneous low-attenuation areas in both kidneys not suggestive of simple cysts. Follow-up contrast-enhanced imaging of the kidneys should be considered particularly if there is clinical suspicion of pyelonephritis. Fleischner guidelines were followed.
[2021-11-23 11:40] VITALS: BP 123/78; PULSE 59; RESP 16; TEMP 36.8; O2SAT 96; BMI 29.4
--- NOTE | 2021-11-23 12:53 | ED.ABDPAIN ---
HPI - Abdominal Pain General Chief Complaint: Abdominal Pain Stated Complaint: abd pain Time Seen by Provider: 11/23/21 11:09 Source: patient Mode of arrival: ambulatory Limitations: no limitations History of Present Illness HPI narrative: 26-year-old female who has previously healthy here with reports of left lower abdominal pain for 1 week with nausea, constipation, bloating, flatus. No urinary symptoms, vomiting, diarrhea, vaginal discharge. Patient is not currently sexually active. Low concern for STI. Related Data Previous Rx's Medication Instructions Recorded albuterol sulfate 90 mcg/actuation 2 puff inhalation QID PRN 03/18/21 aerosol inhaler (ProAir HFA) shortness of breath or wheezing #8.5 grams drospirenone 3 mg-ethinyl 1 tab PO DAILY #84 tabs 03/18/21 estradiol 0.03 mg tablet (Rachael (28)) escitalopram oxalate 10 mg tablet 10 mg PO DAILY #30 tabs 03/18/21 (Lexapro) ibuprofen 600 mg tablet 600 mg PO TID PRN pain #30 tabs 11/23/21 nitrofurantoin 100 mg PO Q12H 5 days #10 caps 11/23/21 monohydrate/macrocrystals 100 mg capsule (Macrobid) Allergies Allergy/AdvReac Type Severity Reaction Status Date / Time No Known Allergies Allergy Verified 11/23/21 11:45 [No Known Allergies*] Review of Systems Review of Systems Yes all other systems are reviewed and are negative Constitutional: Reports no additional constitutional complaints, Denies body ache(s), Denies chills, Denies fever(s), Denies headache(s) and Denies weakness Eyes: Reports no additional eye complaints and Denies change in vision Reports system reviewed and no additional complaints, except as documented, Denies dizziness, Denies headache(s), Denies nasal congestion, Denies nasal discharge and Denies neck pain Cardiovascular: Reports no additional cardiovascular complaints, Denies chest pain, Denies leg edema and Denies dyspnea Respiratory: Reports no additional respiratory complaints, Denies cough and Denies dyspnea Gastrointestinal: Reports no additional gastrointestinal complaints, Reports abdominal pain, Reports bloating, Reports constipation, Reports excessive flatus, Denies diarrhea, Reports nausea and Denies vomiting Genitourinary: Reports no additional female genitourinary complaints and Denies urinary incontinence Musculoskeletal: Reports no additional musculoskeletal complaints, Denies back pain, Denies arthralgias, Denies joint swelling, Denies neck pain, Denies numbness and Denies tingling Skin/Breast: Reports system reviewed and no additional complaints, except as docu and Denies rash Reports system reviewed and no additional complaints, except as documented, Denies dizziness, Denies headache(s), Denies numbness, Denies tingling and Denies weakness PMFSH Past Medical History Attestation statement: The following information was validated with the patient. Source: old records reviewed and nursing notes reviewed Medical History Annual physical exam Anxiety Asthma Family History Family History Paternal Uncle Substance use disorder Mental health disorder Paternal Aunt Substance use disorder Mental health disorder Maternal Aunt Substance use disorder Mental health disorder Maternal Uncle Substance use disorder Mental health disorder Maternal Grandfather Substance use disorder Paternal Grandmother Mental health disorder Social History Social History Housing: House Alcohol intake: never Patient Tobacco Use Status: Current everyday Tobacco user Cigarettes Per Day: 6 e-Cigarette/Vaping Use: Never Used Substance Use Type: Marijuana Advance Directives: No Advance Directives Information Provided: No Current occupational status: employed Physical Exam ED Vital Signs: Vital Signs - 24 hr 11/23/21 11:40 Temperature 98.2 F Pulse Rate 59 Respiratory Rate 16 Blood Pressure 123/78 Pulse Oximetry 96 Oxygen Delivery Method Room Air BMI result Body Mass Index 29.4 Const General: cooperative, healthy appearing and no acute distress Orientation/consciousness: patient oriented x3 Limitations: no limitations HENMT Head: Yes normal to inspection Eyes General: appearance normal, both eyes and all related structures Pupils: Equal, round and reactive pupils present Neck Neck: Yes normal visual inspection, Yes full ROM and Yes no lymphadenopathy Chest Chest palpation & inspection: normal inspection of the chest Resp Effort & Inspection: normal respiratory effort Auscultation: clear to auscultation bilaterally Cardio Rate: regular rate Rhythm: regular rhythm Peripheral pulses: Peripheral pulses 2+ throughout GI Inspection: Yes normal to inspection Palpation (GI): Soft to palpation and Tenderness to palpation present (GI) (Mild left lower quadrant with no rebound or guarding) General: Yes no CVA tenderness Back/Spine/Pelvis Back: no CVA tenderness Thoracic/Lumbar Spine: thoracic and lumbar spine normal to inspection Skin General skin exam: no rashes or lesions noted Neuro General: patient oriented x3 and moves all extremities Cranial nerves: Yes Equal, round and reactive pupils present Cognition (Neuro): normal cognition Gait exam (Neuro): Normal gait present Extrem General: Yes normal to inspection Course Course Course Narrative: CT shows IMPRESSION: Small 1 mm left renal stone. High attenuation areas seen centrally in the left kidney questionable for small stones or gravel, largest measuring 5 mm.. Heterogeneous low-attenuation areas in both kidneys not suggestive of simple cysts. Follow-up contrast-enhanced imaging of the kidneys should be considered particularly if there is clinical suspicion of pyelonephritis. ? -UA shows no signs of infection. Patient denies any urinary frequency, urgency, dysuria. Low concern for pyelonephritis. No leukocytosis or fever. Patient however will be cautiously treated with 5 days of oral antibiotics. Recommend follow-up with Urology. She should return for any fever, vomiting, worsening pain. Comfortable plan for discharge home. MDM - Abdominal Pain MDM Narrative Medical decision making narrative: 26-year-old female here with left lower abdominal pain with nausea, flatus, bloating, constipation the 1 week. On exam has mild tenderness the left lower quadrant. No remote or guarding. Overall well-appearing. Will check labs, UA, CT Differential Diagnosis Differential diagnosis narrative:: IBS, ovarian cyst, PID, diverticulitis Medical Records Attestation: I reviewed the patient's medical records. Lab Data Attestation: I reviewed the patient's lab results. Result diagrams: 11/23/21 12:49 11/23/21 12:49 Labs: Lab Results 11/23/21 11/23/21 11/23/21 Range/Units 12:49 12:49 13:41 WBC 6.7 (4.8-10.8) X10*3/uL RBC 4.26 (4.20-5.50) X10*6/uL Hgb 13.3 (12.0-16.0) g/dl Hct 39.4 (37.0-47.0) % MCV 92.5 (80.0-98.0) fL MCH 31.2 (27.0-33.0) pg MCHC 33.8 (31.0-35.0) g/dl RDW 11.4 (11.0-16.0) % Plt Count 303 (160-400) X10*3/uL MPV 10.1 (9.4-12.3) fL Immature Gran % (Auto) 0.3 (0.0-0.4) % Neut % (Auto) 59.5 (45-73) % Lymph % (Auto) 35.0 (20-40) % [place] % (Auto) 4.8 (2-11) % Eos % (Auto) 0.3 (0-4) % Baso % (Auto) 0.1 (0-2) % Lymph # (Auto) 2.4 (1.2-4.9) X10*3/uL [place] # (Auto) 0.3 (0.1-1.2) X10*3/uL Eos # (Auto) 0.0 (0.0-0.4) X10*3/uL Baso # (Auto) 0.0 (0.0-0.2) X10*3/uL Abs Immat Gran (auto) 0.02 (0.00-0.03) X10*3/uL Absolute Neuts (auto) 4.0 (2.0-8.3) x10*3/uL Absolute Nucleated RBC 0.000 (0.0-0.012) X10*3/uL Nucleated RBC % (auto) 0.0 (0.0-0.2) /100WBC Sodium 139 (135-145) mmol/L Potassium 4.3 (3.3-5.1) mmol/L Chloride 107 (96-108) mmol/L Carbon Dioxide 25 (22-29) mmol/L Anion Gap 11 L (12-20) BUN 6 L D (9-16) mg/dL Creatinine 0.78 (0.5-1.4) mg/dL Estim Creat Clear Calc 137.4 Estimated GFR > 60 Random Glucose 103 (60-115) mg/dL Calcium 9.2 D (8.4-10.2) mg/dL Magnesium 2.1 (1.6-2.6) mg/dL Total Bilirubin 0.4 (0.0-1.0) mg/dL Direct Bilirubin 0.2 (0.0-0.5) mg/dL AST 16 (5-31) U/L ALT 18 (0-31) U/L Alkaline Phosphatase 45 D (39-117) U/L Total Protein 6.9 (6.5-8.0) g/dL Albumin 4.3 (3.5-5.0) g/dL Lipase 14 (8-78) U/L Urine Color YELLOW Urine Appearance CLEAR Urine pH 7.0 (5.0-8.0) Ur Specific [place] <= 1.005 (1.005-1.025) Urine Protein NEG (NEG-TRACE) MG/DL Urine Glucose (UA) NEG (NEG) MG/DL Urine Ketones NEG (NEG) MG/DL Urine Blood 1+ H (NEG) Urine Nitrite NEG (NEG) Ur Leukocyte Esterase NEG (NEG) Urine RBC 1-4 (0) /HPF Urine WBC 0 (0-4) /HPF Ur Squamous Epith Cells NONE /LPF Urine Bacteria NONE /LPF Urine Test (NEGATIVE) 11/23/21 Range/Units 13:41 WBC (4.8-10.8) X10*3/uL RBC (4.20-5.50) X10*6/uL Hgb (12.0-16.0) g/dl Hct (37.0-47.0) % MCV (80.0-98.0) fL MCH (27.0-33.0) pg MCHC (31.0-35.0) g/dl RDW (11.0-16.0) % Plt Count (160-400) X10*3/uL MPV (9.4-12.3) fL Immature Gran % (Auto) (0.0-0.4) % Neut % (Auto) (45-73) % Lymph % (Auto) (20-40) % [place] % (Auto) (2-11) % Eos % (Auto) (0-4) % Baso % (Auto) (0-2) % Lymph # (Auto) (1.2-4.9) X10*3/uL [place] # (Auto) (0.1-1.2) X10*3/uL Eos # (Auto) (0.0-0.4) X10*3/uL Baso # (Auto) (0.0-0.2) X10*3/uL Abs Immat Gran (auto) (0.00-0.03) X10*3/uL Absolute Neuts (auto) (2.0-8.3) x10*3/uL Absolute Nucleated RBC (0.0-0.012) X10*3/uL Nucleated RBC % (auto) (0.0-0.2) /100WBC Sodium (135-145) mmol/L Potassium (3.3-5.1) mmol/L Chloride (96-108) mmol/L Carbon Dioxide (22-29) mmol/L Anion Gap (12-20) BUN (9-16) mg/dL Creatinine (0.5-1.4) mg/dL Estim Creat Clear Calc Estimated GFR Random Glucose (60-115) mg/dL Calcium (8.4-10.2) mg/dL Magnesium (1.6-2.6) mg/dL Total Bilirubin (0.0-1.0) mg/dL Direct Bilirubin (0.0-0.5) mg/dL AST (5-31) U/L ALT (0-31) U/L Alkaline Phosphatase (39-117) U/L Total Protein (6.5-8.0) g/dL Albumin (3.5-5.0) g/dL Lipase (8-78) U/L Urine Color Urine Appearance Urine pH (5.0-8.0) Ur Specific [place] (1.005-1.025) Urine Protein (NEG-TRACE) MG/DL Urine Glucose (UA) (NEG) MG/DL Urine Ketones (NEG) MG/DL Urine Blood (NEG) Urine Nitrite (NEG) Ur Leukocyte Esterase (NEG) Urine RBC (0) /HPF Urine WBC (0-4) /HPF Ur Squamous Epith Cells /LPF Urine Bacteria /LPF Urine Test NEGATIVE (NEGATIVE) Imaging Data CT scan - abdomen: Attestation: I personally reviewed and interpreted this imaging study as follows: Radiologist's impression: INDINGS: LUNG BASES: The visualized lung bases are unremarkable.? LIVER, GALLBLADDER, AND BILIARY TREE: The liver is normal in size, shape, and attenuation. No focal hepatic lesion or biliary ductal dilatation is present. The gallbladder is unremarkable with no evidence of radiopaque gallstones, gallbladder wall thickening, or obvious pericholecystic inflammatory changes.? PANCREAS: Unremarkable.? SPLEEN: Unremarkable.? ADRENAL GLANDS: Unremarkable.? KIDNEYS AND URETERS: There is a small 1 mm stone in the lower pole of the left kidney. There are small high attenuation areas in the central left kidney questionable for stones or gravel. There are ill-defined hypoechoic areas seen in both kidneys, in the medial lower pole right kidney measuring approximately 1 x 1.5 cm in the more central areas in the peripelvic left kidney and lower pole, largest area measuring 1.8 cm. Contrast-enhanced imaging of the kidneys should be considered if clinically indicated, particularly if there is suspicion of hilar nephritis. No hydronephrosis, ureteral dilatation or ureteral stone. BLADDER: Unremarkable.? GASTROINTESTINAL TRACT: The small and large bowel are unremarkable. The appendix is unremarkable.? ABDOMINAL WALL: No significant hernia is appreciated.? LYMPH NODES: Normal. VASCULAR: Unremarkable. PELVIC VISCERA: Not well evaluated without contrast. OSSEOUS STRUCTURES: Unremarkable.? CT/CT abdomen pelvis wo con IMPRESSION: Small 1 mm left renal stone. High attenuation areas seen centrally in the left kidney questionable for small stones or gravel, largest measuring 5 mm.. Heterogeneous low-attenuation areas in both kidneys not suggestive of simple cysts. Follow-up contrast-enhanced imaging of the kidneys should be considered particularly if there is clinical suspicion of pyelonephritis. ? Fleischner guidelines were followed. Discharge Plan Discharge Clinical Impression: Calculus of kidney Patient Disposition: Home, Self-Care Instructions: Kidney Stones (ED) Additional Instructions: I do not have high suspicion that you have a kidney infection although there are some changes in her CT scan that may be seen with a kidney infection. Therefore we are treating you with antibiotics to be cautious. Increase fluids, rest Follow-up with Urology Return for fever, vomiting, increase in pain Prescriptions: New nitrofurantoin monohyd/m-cryst [Macrobid] 100 mg capsule 100 mg PO Q12H 5 Days Qty: 10 0RF Rx Instructions: must administer with a meal/food ibuprofen 600 mg tablet 600 mg PO TID PRN (Reason: pain) Qty: 30 0RF No Action albuterol sulfate [ProAir HFA] 90 mcg/actuation HFA aerosol inhaler 2 puff inhalation QID PRN (Reason: shortness of breath or wheezing) Qty: 8.5 4RF escitalopram oxalate [Lexapro] 10 mg tablet 10 mg PO DAILY Qty: 30 4RF drospirenone-ethinyl estradiol [Rachael (28)] 3-0.03 mg tablet 1 tab PO DAILY Qty: 84 3RF Referrals: Laci Gilbert MD [Physician] - 2 weeks Interventions: ED Discharge Assessment Last Done: 11/23/21 16:08 Discharge Date/Time: 11/23/21 16:08
[2021-11-23 12:54] LABS: MANUAL DIFF FLAG NO
[2021-11-23 12:59] LABS: Basophils Percent Auto 0.1 % (0-2); Eosinophils Percent Auto 0.3 % (0-4); Hematocrit 39.4 % (37.0-47.0); Hemoglobin 13.3 g/dl (12.0-16.0); Imm Gran Abs Auto 0.02 X10*3/uL (0.00-0.03); Imm Gran Pct Auto 0.3 % (0.0-0.4); Lymphocytes Absolute Auto 2.4 X10*3/uL (1.2-4.9); Mean Corpuscular HGB Conc 33.8 g/dl (31.0-35.0); Mean Corpuscular Hemoglobin 31.2 pg (27.0-33.0); Mean Corpuscular Volume 92.5 fL (80.0-98.0); Mean Platelet Volume 10.1 fL (9.4-12.3); Monocytes Absolute Auto 0.3 X10*3/uL (0.1-1.2); Monocytes Percent Auto 4.8 % (2-11); Neutrophils Percent Auto 59.5 % (45-73); Platelet Count 303 X10*3/uL (160-400); Red Blood Count 4.26 X10*6/uL (4.20-5.50); Red Cell Distribution Width 11.4 % (11.0-16.0); White Blood Count 6.7 X10*3/uL (4.8-10.8)
[2021-11-23 13:14] LABS: Alanine Aminotransferase 18 U/L (0-31); Albumin Level 4.3 g/dL (3.5-5.0); Alkaline Phosphatase 45 U/L (39-117); Anion Gap 11 (12-20); Aspartate Amino Transferase 16 U/L (5-31); Bilirubin Direct 0.2 mg/dL (0.0-0.5); Bilirubin Total 0.4 mg/dL (0.0-1.0); Blood Urea Nitrogen 6 mg/dL (9-16); Calcium 9.2 mg/dL (8.4-10.2); Carbon Dioxide 25 mmol/L (22-29); Chloride 107 mmol/L (96-108); Creatinine Clr Calc Pharmacy 137.4; Estimated Glomerular Filt Rate > 60; Glucose Random 103 mg/dL (60-115); Lipase 14 U/L (8-78); Magnesium 2.1 mg/dL (1.6-2.6); Potassium 4.3 mmol/L (3.3-5.1); Sodium 139 mmol/L (135-145); Total Protein 6.9 g/dL (6.5-8.0)
[2021-11-23 13:51] LABS: Appearance Urine CLEAR; Color Urine YELLOW; Glucose Urine UA NEG (NEG); Leukocyte Esterase Urine NEG (NEG); Nitrite Urine NEG (NEG); Specific Gravity - Urine <= 1.005 (1.005-1.025); UACC Culture Trigger NO; Urine Blood 1+ (NEG); Urine Ketones NEG (NEG); Urine Protein NEG (NEG-TRACE)
[2021-11-23 13:53] LABS: UPreg QC Valid YES; Urine Pregnancy NEGATIVE (NEGATIVE)
[2021-11-23 14:31] LABS: WBC Urine 0 /HPF (0-4)
== END 2021-11-23 16:08 | disposition home or self-care (01) ==
PROVIDERS: Emergency Medicine; Emergency Provider Emergency Medicine; PCP Internal Medicine
DX: N20.0 Calculus of kidney (principal); R10.32 Left lower quadrant pain; F17.210 Nicotine dependence, cigarettes, uncomplicated; Z79.899 Other long term (current) drug therapy; Z71.6 Tobacco abuse counseling
CPT/HCPCS: 36415; 74176; 80048; 80076; 81001; 81025; 83690; 83735; 85025; 99283

== ENCOUNTER 2022-02-07 14:13 | Emergency (ER) | payer OTHER, SELFPAY ==
[2022-02-07 14:18] VITALS: BP 142/73; PULSE 77; RESP 18; TEMP 37.2; O2SAT 100; BMI 28.5
[2022-02-07 14:57] LABS: MANUAL DIFF FLAG NO
[2022-02-07 15:00] LABS: Basophils Percent Auto 0.3 % (0-2); Eosinophils Percent Auto 0.4 % (0-4); Hematocrit 37.9 % (37.0-47.0); Hemoglobin 12.7 g/dl (12.0-16.0); Imm Gran Abs Auto 0.02 X10*3/uL (0.00-0.03); Imm Gran Pct Auto 0.2 % (0.0-0.4); Lymphocytes Absolute Auto 3.2 X10*3/uL (1.2-4.9); Lymphocytes Percent Auto 33.6 % (20-40); Mean Corpuscular HGB Conc 33.5 g/dl (31.0-35.0); Mean Corpuscular Hemoglobin 31.4 pg (27.0-33.0); Mean Corpuscular Volume 93.6 fL (80.0-98.0); Mean Platelet Volume 9.5 fL (9.4-12.3); Monocytes Absolute Auto 0.4 X10*3/uL (0.1-1.2); Monocytes Percent Auto 4.3 % (2-11); Neutrophils Absolute Auto 5.9 x10*3/uL (2.0-8.3); Neutrophils Percent Auto 61.2 % (45-73); Platelet Count 366 X10*3/uL (160-400); Red Blood Count 4.05 X10*6/uL (4.20-5.50); Red Cell Distribution Width 11.4 % (11.0-16.0); White Blood Count 9.6 X10*3/uL (4.8-10.8)
[2022-02-07 15:08] LABS: Appearance Urine Clear; Color Urine Yellow; Glucose Urine UA Negative (Negative); Leukocyte Esterase Urine Trace (Negative); Nitrite Urine Negative (Negative); UMIC TRIGGER UACC YES; Urine Blood Moderate (2+) (Negative); Urine Ketones Negative (Negative); Urine Protein Negative (Neg-Trace)
[2022-02-07 15:09] LABS: UPreg QC Valid YES; Urine Pregnancy NEGATIVE (NEGATIVE)
[2022-02-07 15:15] LABS: Alanine Aminotransferase 15 U/L (0-31); Alkaline Phosphatase 58 U/L (39-117); Anion Gap 14 (12-20); Aspartate Amino Transferase 15 U/L (5-31); Bilirubin Total 0.3 mg/dL (0.0-1.0); Blood Urea Nitrogen 10 mg/dL (9-16); Carbon Dioxide 26 mmol/L (22-29); Chloride 102 mmol/L (96-108); Creatinine Clr Calc Pharmacy 151.5; Estimated Glomerular Filt Rate > 60; Glucose Random 96 mg/dL (60-115); Potassium 4.2 mmol/L (3.3-5.1); Sodium 138 mmol/L (135-145); Total Protein 6.9 g/dL (6.5-8.0)
[2022-02-07 16:02] LABS: Bacteria Urine None Seen (None Seen); Hyaline Casts Urine 0-2 /LPF (0-2); Squamous Epithelial Cell Urine 0-2 /HPF (0-2); WBC Urine 0-5 /HPF (0-5)
[2022-02-07 19:50] VITALS: BP 141/69; PULSE 82; RESP 18; TEMP 36.9; O2SAT 98
--- NOTE | 2022-02-07 21:20 | ED.ABDPAIN ---
HPI - Abdominal Pain General Chief Complaint: Back Pain/Injury Stated Complaint: Kidney stone? Time Seen by Provider: 02/07/22 21:19 Source: patient Mode of arrival: ambulatory Limitations: no limitations History of Present Illness HPI narrative: Patient complaining of bilateral flank pain for last couple of days was seen here in 12/[address] scan which showed 1 mm nonobstructive left renal stone. No nausea no vomiting no fever Related Data Previous Rx's Medication Instructions Recorded albuterol sulfate 90 mcg/actuation 2 puff inhalation QID PRN 03/18/21 aerosol inhaler (ProAir HFA) shortness of breath or wheezing #8.5 grams drospirenone 3 mg-ethinyl 1 tab PO DAILY #84 tabs 03/18/21 estradiol 0.03 mg tablet (Rachael (28)) escitalopram oxalate 10 mg tablet 10 mg PO DAILY #30 tabs 03/18/21 (Lexapro) ibuprofen 600 mg tablet 600 mg PO TID PRN pain #30 tabs 11/23/21 nitrofurantoin 100 mg PO Q12H 5 days #10 caps 11/23/21 monohydrate/macrocrystals 100 mg capsule (Macrobid) tramadol 50 mg tablet 50 mg PO Q6H PRN pain #20 tabs 02/07/22 Allergies Allergy/AdvReac Type Severity Reaction Status Date / Time No Known Allergies Allergy Verified 11/23/21 11:45 [No Known Allergies*] Review of Systems Review of Systems Yes all other systems are reviewed and are negative PMFSH Past Medical History Medical History Annual physical exam Anxiety Asthma Family History Family History Paternal Uncle Substance use disorder Mental health disorder Paternal Aunt Substance use disorder Mental health disorder Maternal Aunt Substance use disorder Mental health disorder Maternal Uncle Substance use disorder Mental health disorder Maternal Grandfather Substance use disorder Paternal Grandmother Mental health disorder Social History Social History Housing: House Alcohol intake: current Alcohol intake frequency: does not drink Patient Tobacco Use Status: Current everyday Tobacco user Cigarettes Per Day: 6 Smoked in Last 30 Days: Yes e-Cigarette/Vaping Use: Never Used Use of substances other than those prescribed or required for medical reasons: No Substance Use Type: Marijuana Advance Directives: No Advance Directives Information Provided: No Patient : No Current occupational status: employed Physical Exam ED Vital Signs: Vital Signs - 24 hr 02/07/22 14:18 02/07/22 19:50 02/07/22 21:41 Temperature 98.9 F 98.4 F Pulse Rate 77 82 64 Respiratory Rate 18 18 18 Blood Pressure 142/73 H 141/69 H 123/54 L Pulse Oximetry 100 98 99 Oxygen Delivery Method Room Air Room Air Room Air BMI result Body Mass Index 28.5 Appearance: Alert. Oriented X3. No acute distress. Anxious Eyes: PERRLA, No Nystagmus ENT: Pharynx normal. Oral Mucosa moist Neck: Normal inspection. Neck supple. CVS: Normal heart rate and rhythm. Pulses normal. Respiratory: No respiratory distress. Equal air entry bilateral, no wheezing/rales/rhonchi Abdomen: Soft and nontender. Bowel sounds are present, no mass palpable, no CVA tenderness diffuse lower back tenderness Skin: Skin warm and dry. Normal skin color. Normal skin turgor. Extremities: No lower extremity edema. No calf tenderness Neuro: Oriented X 3. No motor deficit. No sensory deficit.No cerebellar signs , cranial nerves II-XII intact MDM - Abdominal Pain MDM Narrative Medical decision making narrative: Patient with musculoskeletal back pain left renal stable discharge patient home on tramadol. Patient does have a history of stone but never been obstructive is only 1 mm in size in the recent CT scan Lab Data Attestation: I reviewed the patient's lab results. Result diagrams: 02/07/22 14:53 02/07/22 14:53 Labs: Lab Results 02/07/22 02/07/22 02/07/22 Range/Units 14:53 14:53 14:53 WBC 9.6 (4.8-10.8) X10*3/uL RBC 4.05 L (4.20-5.50) X10*6/uL Hgb 12.7 (12.0-16.0) g/dl Hct 37.9 (37.0-47.0) % MCV 93.6 (80.0-98.0) fL MCH 31.4 (27.0-33.0) pg MCHC 33.5 (31.0-35.0) g/dl RDW 11.4 (11.0-16.0) % Plt Count 366 (160-400) X10*3/uL MPV 9.5 (9.4-12.3) fL Immature Gran % (Auto) 0.2 (0.0-0.4) % Neut % (Auto) 61.2 (45-73) % Lymph % (Auto) 33.6 (20-40) % [place] % (Auto) 4.3 (2-11) % Eos % (Auto) 0.4 (0-4) % Baso % (Auto) 0.3 (0-2) % Lymph # (Auto) 3.2 (1.2-4.9) X10*3/uL [place] # (Auto) 0.4 (0.1-1.2) X10*3/uL Eos # (Auto) 0.0 (0.0-0.4) X10*3/uL Baso # (Auto) 0.0 (0.0-0.2) X10*3/uL Abs Immat Gran (auto) 0.02 (0.00-0.03) X10*3/uL Absolute Neuts (auto) 5.9 (2.0-8.3) x10*3/uL Absolute Nucleated RBC 0.000 (0.0-0.012) X10*3/uL Nucleated RBC % (auto) 0.0 (0.0-0.2) /100WBC Sodium 138 (135-145) mmol/L Potassium 4.2 (3.3-5.1) mmol/L Chloride 102 (96-108) mmol/L Carbon Dioxide 26 (22-29) mmol/L Anion Gap 14 (12-20) BUN 10 D (9-16) mg/dL Creatinine 0.72 (0.5-1.4) mg/dL Estim Creat Clear Calc 151.5 Estimated GFR > 60 Random Glucose 96 (60-115) mg/dL Calcium 9.0 (8.4-10.2) mg/dL Total Bilirubin 0.3 (0.0-1.0) mg/dL AST 15 (5-31) U/L ALT 15 (0-31) U/L Alkaline Phosphatase 58 D (39-117) U/L Total Protein 6.9 (6.5-8.0) g/dL Albumin 4.0 (3.5-5.0) g/dL Urine Color Yellow Urine Appearance Clear Urine pH 8.0 (5.0-9.0) Ur Specific [place] 1.010 (1.005-1.025) Urine Protein Negative (Neg-Trace) mg/dL Urine Glucose (UA) Negative (Negative) mg/dL Urine Ketones Negative (Negative) mg/dL Urine Blood Moderate (2+) H (Negative) Urine Nitrite Negative (Negative) Ur Leukocyte Esterase Trace H (Negative) Urine RBC 3-5 H (0-2) /HPF Urine WBC 0-5 (0-5) /HPF Ur Squamous Epith Cells 0-2 (0-2) /HPF Urine Bacteria None Seen (None Seen) Hyaline Casts 0-2 (0-2) /LPF Urine Test (NEGATIVE) 02/07/22 Range/Units 14:53 WBC (4.8-10.8) X10*3/uL RBC (4.20-5.50) X10*6/uL Hgb (12.0-16.0) g/dl Hct (37.0-47.0) % MCV (80.0-98.0) fL MCH (27.0-33.0) pg MCHC (31.0-35.0) g/dl RDW (11.0-16.0) % Plt Count (160-400) X10*3/uL MPV (9.4-12.3) fL Immature Gran % (Auto) (0.0-0.4) % Neut % (Auto) (45-73) % Lymph % (Auto) (20-40) % [place] % (Auto) (2-11) % Eos % (Auto) (0-4) % Baso % (Auto) (0-2) % Lymph # (Auto) (1.2-4.9) X10*3/uL [place] # (Auto) (0.1-1.2) X10*3/uL Eos # (Auto) (0.0-0.4) X10*3/uL Baso # (Auto) (0.0-0.2) X10*3/uL Abs Immat Gran (auto) (0.00-0.03) X10*3/uL Absolute Neuts (auto) (2.0-8.3) x10*3/uL Absolute Nucleated RBC (0.0-0.012) X10*3/uL Nucleated RBC % (auto) (0.0-0.2) /100WBC Sodium (135-145) mmol/L Potassium (3.3-5.1) mmol/L Chloride (96-108) mmol/L Carbon Dioxide (22-29) mmol/L Anion Gap (12-20) BUN (9-16) mg/dL Creatinine (0.5-1.4) mg/dL Estim Creat Clear Calc Estimated GFR Random Glucose (60-115) mg/dL Calcium (8.4-10.2) mg/dL Total Bilirubin (0.0-1.0) mg/dL AST (5-31) U/L ALT (0-31) U/L Alkaline Phosphatase (39-117) U/L Total Protein (6.5-8.0) g/dL Albumin (3.5-5.0) g/dL Urine Color Urine Appearance Urine pH (5.0-9.0) Ur Specific [place] (1.005-1.025) Urine Protein (Neg-Trace) mg/dL Urine Glucose (UA) (Negative) mg/dL Urine Ketones (Negative) mg/dL Urine Blood (Negative) Urine Nitrite (Negative) Ur Leukocyte Esterase (Negative) Urine RBC (0-2) /HPF Urine WBC (0-5) /HPF Ur Squamous Epith Cells (0-2) /HPF Urine Bacteria (None Seen) Hyaline Casts (0-2) /LPF Urine Test NEGATIVE (NEGATIVE) Discharge Plan Discharge Clinical Impression: Renal colic Patient Disposition: Home, Self-Care Instructions: Renal Colic (ED) Additional Instructions: Drink plenty of fluids Tramadol for severe pain Your stone is very small and it will pass unlikely the cause of pain Prescriptions: New tramadol 50 mg tablet 50 mg PO Q6H PRN (Reason: pain) Qty: 20 0RF No Action nitrofurantoin monohyd/m-cryst [Macrobid] 100 mg capsule 100 mg PO Q12H 5 Days Qty: 10 0RF Rx Instructions: must administer with a meal/food ibuprofen 600 mg tablet 600 mg PO TID PRN (Reason: pain) Qty: 30 0RF albuterol sulfate [ProAir HFA] 90 mcg/actuation HFA aerosol inhaler 2 puff inhalation QID PRN (Reason: shortness of breath or wheezing) Qty: 8.5 4RF escitalopram oxalate [Lexapro] 10 mg tablet 10 mg PO DAILY Qty: 30 4RF drospirenone-ethinyl estradiol [Rachael (28)] 3-0.03 mg tablet 1 tab PO DAILY Qty: 84 3RF Interventions: ED Discharge Assessment Last Done: 02/07/22 21:50 Discharge Date/Time: 02/07/22 21:51
[2022-02-07] MEDS: traMADoL HCL 50 MG TABLET PO (21:38)
[2022-02-07 21:41] VITALS: BP 123/54; PULSE 64; RESP 18; O2SAT 99
--- NOTE | 2022-02-07 21:45 | PC.NURSE ---
Assumed care of pt. from waiting room. Pt. experiencing pain in the lower back, around the pelvic region. Pain comes and goes, ranging from 3-6. Pt. medicated per MAR and d/c'd to home with a prescription for tramadol.
== END 2022-02-07 21:51 | disposition home or self-care (01) ==
PROVIDERS: Emergency Provider Internal Medicine; PCP Internal Medicine
DX: N20.0 Calculus of kidney (principal); R10.9 Unspecified abdominal pain; F12.90 Cannabis use, unspecified, uncomplicated
CPT/HCPCS: 36415; 80053; 81001; 81003; 81025; 85025; 99283; 99284

== ENCOUNTER 2022-06-22 08:42 | Outpatient (REF) | payer OTHER, SELFPAY ==
[2022-06-22 12:36] LABS: Cholesterol 193 mg/dL; HDL Cholesterol 82 mg/dL; LDL Cholesterol Calculated 99 mg/dl; Triglycerides 61 mg/dL
[2022-06-26 13:39] LABS: Endomysial IgA Antibody Negative (Negative)
== END 2022-06-22 08:43 | disposition home or self-care (01) ==
LOC: HO.HMGCLDS 08:42
PROVIDERS: PCP Internal Medicine; Visit Provider Internal Medicine
DX: Z00.00 Encounter for general adult medical examination without abnormal findings (principal); J45.909 Unspecified asthma, uncomplicated
CPT/HCPCS: 36415; 80061; 84443; 86231

== ENCOUNTER 2023-01-11 14:02 | Outpatient (REF) | payer OTHER, SELFPAY ==
[2023-01-12 06:18] LABS: CT PCR NOT DETECTED (Not Detect.); NG PCR NOT DETECTED (Not Detect.)
[2023-01-12 12:07] LABS: BV Int Neg Control Negative (Negative); BV Int Pos Control Positive (Positive)
== END 2023-01-11 14:03 | disposition home or self-care (01) ==
LOC: HO.LNP 14:02
PROVIDERS: PCP Internal Medicine; Visit Provider Advanced Practice Midwife
DX: Z01.419 Encounter for gynecological examination (general) (routine) without abnormal findings (principal); F41.9 Anxiety disorder, unspecified; N89.8 Other specified noninflammatory disorders of vagina; Z20.2 Contact with and (suspected) exposure to infections with a predominantly sexual mode of transmission; Z79.899 Other long term (current) drug therapy
CPT/HCPCS: 0353U; 87480; 87510; 87660

== ENCOUNTER 2023-01-11 14:02 | Outpatient (AMB) | payer OTHER, SELFPAY ==
--- NOTE | 2023-01-11 13:57 | MHC.OFFVIS ---
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: No Information Interpreted: non-clinical & clinical Item Processor: Item Processor Present (Aidyn) Allergies No Known Allergies [No Known Allergies*] Allergy (Verified 01/11/23 13:59) Medication List - Last Reconciled 01/11/23 by Suad Choudhary CNM albuterol sulfate 90 mcg/actuation (ProAir HFA) 2 puffs inhalation QID PRN drospirenone-ethinyl estradiol 3-0.03 mg (Rachael (28)) 1 tab PO DAILY fluticasone propionate 50 mcg/actuation (Flovent Diskus) 1 inh inhalation BID ibuprofen 600 mg PO TID PRN Is last menstrual period known: Yes Last menstrual period: 12/15/22 Post menopausal: No 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 There was a glitch in the check-in process. She normally gets her control pills from her primary care provider but says her primary recommend she get them here now. She is not having any issues with the control pills. She is dealing with some depression that comes and goes and is not hooked up with any therapist yet though she was in therapy in the past both in [facility] and [facility] most recently with them and at the end of the visit we discussed this and she thinks she will call [facility] again to see if she can restart. So referral not being placed as she has prior contact with them. She is in a new relationship as she went through a break-up with her previous partner. She excepts STI testing. She is not really having any symptoms of anything though a little vaginal itching and burning occasionally. She is on her 2nd course of Augmentin in the past 6 months for strep throat and was given a p.r.n. dose of Diflucan at the urgent care but is open to receiving another prescription just in case she ends up on an antibiotic again. Discussed probiotics and their usefulness because she does have diarrhea on a come common basis. She has gained weight and she is beginning to think about what she can do to address this she attributes it to being depressed because of seasonal affective issues as well as having gone through the break-up last year and she gained about 30 lb in that process. Discussed ways of addressing this, with eating better and increased activity. She has been working more hours so she has not had time to do the things that she enjoys doing like her crafting so since time is in issue suggested turning on music in her room and dancing. [facility] Medical History Annual physical exam Anxiety Asthma Family History (Updated 01/11/23 @ 14:00 by ALLISON Judge) Paternal Uncle Substance use disorder Mental health disorder Paternal Aunt Substance use disorder Mental health disorder Maternal Aunt Substance use disorder Mental health disorder Maternal Uncle Substance use disorder Mental health disorder Maternal Grandfather Substance use disorder Paternal Grandmother Mental health disorder Maternal Grandmother Breast cancer Social History (Updated 01/11/23 @ 14:01 by ALLISON Judge) Household Members Other:: lives with parents, 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 [employer] Housing: House Alcohol intake: current Alcohol intake frequency: does not drink Patient Tobacco Use Status: Former Tobacco user Cigarettes Per Day: 6 e-Cigarette/Vaping Use: Never Used Substance Use Type: Marijuana service: No Current occupational status: employed Cognitive needs: No Hearing needs: No Vision needs: Yes Female Reproductive History Menstrual Age of Menarche: 16 Duration of menses: 3-5 days Date of last menstrual period: 12/15/22 control method: pills Total pregnancies: 0 Date of last pap smear: 06/08/21 (negative) History of abnormal pap smear: No Physical Exam Vital Signs: BMI result Body Mass Index 35.0 Const General: healthy appearing, comfortable, no acute distress, well developed and alert Nutritional Appearance: average body habitus Orientation/consciousness: patient oriented x3 Limitations: no limitations HEENT Head: Yes normocephalic Neck Neck: Yes normal visual inspection Chest Chest palpation & inspection: normal inspection of the chest Breast/axilla inspection: normal inspection of the breasts and normal inspection of the axillae Breast/axilla palpation: normal palpation of the breasts and normal palpation of the axillae Resp Effort & Inspection: normal respiratory effort GI Inspection: Yes normal to inspection, No Abdominal wall edema and No distended Palpation (GI): Soft to palpation and nontender Other: Vagina is pink and moist cervix nulliparous pink clear with small amount clear and white discharge with borderline appearance of yeast. Uterus small midposition. Adnexa non tender and very good tone with Kegel. General: Yes bladder normal to palpation External Female Exam: normal external appearance and normal appearance of the urethra Speculum Exam - Vagina: normal appearance of the vagina, normal palpation and normal vaginal discharge Speculum Exam - Cervix: normal appearance of the cervix, normal palpation and nontender Bimanual exam- vagina & uterus: normal bimanual exam, normal palpation, uterine size normal, bladder normal to palpation, consistency normal, normal palpation, uterine mobility normal, uterine shape normal, No Cervical tenderness present, non-tender and no cervical motion tenderness Bimanual Exam- Adnexa, other: normal adnexae, no masses, normal and No adnexal tenderness Neuro General: patient oriented x3 Assessment & Plan Assessment & Plan (1) Cervical cancer screening: Comment: 06/07/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, 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 Code(s): Z12.4 - Encounter for screening for malignant neoplasm of cervix (2) Well woman exam with routine gynecological exam: Code(s): Z01.419 - Encounter for gynecological examination (general) (routine) without abnormal findings (3) control counseling: Code(s): Z30.09 - Encounter for other general counseling and advice on contraception (4) Screen for sexually transmitted diseases: Code(s): Z11.3 - Encounter for screening for infections with a predominantly sexual mode of transmission (5) Anxiety: Comment: f/u with psychiatrist/therapist Code(s): F41.9 - Anxiety disorder, unspecified (6) Vaginal itching: Comment: 01/11/23-completing 2nd course of Augmentin in 6 months, for strep throat. Sending Rx for Diflucan p.r.n. 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 There was a glitch in the check-in process. She normally gets her control pills from her primary care provider but says her primary recommend she get them here now. She is not having any issues with the control pills. She is dealing with some depression that comes and goes and is not hooked up with any therapist yet though she was in therapy in the past both in [facility] and [facility] most recently with them and at the end of the visit we discussed this and she thinks she will call [facility] again to see if she can restart. So referral not being placed as she has prior contact with them. She is in a new relationship as she went through a break-up with her previous partner. She excepts STI testing. She is not really having any symptoms of anything though a little vaginal itching and burning occasionally. She is on her 2nd course of Augmentin in the past 6 months for strep throat and was given a p.r.n. dose of Diflucan at the urgent care but is open to receiving another prescription just in case she ends up on an antibiotic again. Discussed probiotics and their usefulness because she does have diarrhea on a come common basis. She has gained weight and she is beginning to think about what she can do to address this she attributes it to being depressed because of seasonal affective issues as well as having gone through the break-up last year and she gained about 30 lb in that process. Discussed ways of addressing this, with eating better and increased activity. She has been working more hours so she has not had time to do the things that she enjoys doing like her crafting so since time is in issue suggested turning on music in her room and dancing. Discussed safer sex from especially also because since she has gained weight there is a possibility that the control pills could be less effective than they were previously. Additionally I reviewed danger signs of control pills and what to do. Orders: Orders Bacterial Vaginosis Panel Today Z01.419 - Encounter for gynecological examination (general) (routine) without abnormal findings CT NG by PCR Today Z01.419 - Encounter for gynecological examination (general) (routine) without abnormal findings Hepatitis B Surface Antigen Today F41.9 - Anxiety disorder, unspecified, N89.8 - Other specified noninflammatory disorders of vagina, Z01.419 - Encounter for gynecological examination (general) (routine) without abnormal findings, Z11.3 - Encounter for screening for infections with a predominantly sexual mode of transmission, Z12.4 - Encounter for screening for malignant neoplasm of cervix, Z30.09 - Encounter for other general counseling and advice on contraception Hepatitis C Antibody Today F41.9 - Anxiety disorder, unspecified, N89.8 - Other specified noninflammatory disorders of vagina, Z01.419 - Encounter for gynecological examination (general) (routine) without abnormal findings, Z11.3 - Encounter for screening for infections with a predominantly sexual mode of transmission, Z12.4 - Encounter for screening for malignant neoplasm of cervix, Z30.09 - Encounter for other general counseling and advice on contraception HIV Ab/Ag Today F41.9 - Anxiety disorder, unspecified, N89.8 - Other specified noninflammatory disorders of vagina, Z01.419 - Encounter for gynecological examination (general) (routine) without abnormal findings, Z11.3 - Encounter for screening for infections with a predominantly sexual mode of transmission, Z12.4 - Encounter for screening for malignant neoplasm of cervix, Z30.09 - Encounter for other general counseling and advice on contraception Syphilis Screen Today F41.9 - Anxiety disorder, unspecified, N89.8 - Other specified noninflammatory disorders of vagina, Z01.419 - Encounter for gynecological examination (general) (routine) without abnormal findings, Z11.3 - Encounter for screening for infections with a predominantly sexual mode of transmission, Z12.4 - Encounter for screening for malignant neoplasm of cervix, Z30.09 - Encounter for other general counseling and advice on contraception Medications: New fluconazole may repeat second dose 72 hrs after first dose if symptoms persist 150 mg PO Q3D 2 doses 2 tabs 0RF Refilled drospirenone-ethinyl estradiol 3-0.03 mg (Rachael (28)) 1 tab PO DAILY 84 tabs 4RF Coding Level of Care Code Est Pt Prev Care 18-39y(02180) Diagnoses Cervical cancer screening Z12.4 Well woman exam with routine gynecological exam Z01.419 control counseling Z30. Screen for sexually transmitted diseases Z11.3 Anxiety F41.9 Vaginal itching N89.8 Counseling for control, oral contraceptives Z30.
[2023-01-11 13:58] VITALS: BP 122/76; BMI 35.0
--- NOTE | 2023-01-11 14:46 | MHC.OFFVIS ---
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 Allergies No Known Allergies [No Known Allergies*] Allergy (Verified 01/11/23 13:59) Medication List - Last Reconciled 01/11/23 by Suad Choudhary CNM albuterol sulfate 90 mcg/actuation (ProAir HFA) 2 puffs inhalation QID PRN drospirenone-ethinyl estradiol 3-0.03 mg (Rachael (28)) 1 tab PO DAILY fluticasone propionate 50 mcg/actuation (Flovent Diskus) 1 inh inhalation BID ibuprofen 600 mg PO TID PRN PFSH Medical History Annual physical exam Anxiety Asthma Family History (Updated 01/11/23 @ 14:00 by ALLISON Judge) Paternal Uncle Substance use disorder Mental health disorder Paternal Aunt Substance use disorder Mental health disorder Maternal Aunt Substance use disorder Mental health disorder Maternal Uncle Substance use disorder Mental health disorder Maternal Grandfather Substance use disorder Paternal Grandmother Mental health disorder Maternal Grandmother Breast cancer Social History (Updated 01/11/23 @ 14:01 by ALLISON Judge) Household Members Other:: lives with parents, 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 [employer] Housing: House Alcohol intake: current Alcohol intake frequency: does not drink Patient Tobacco Use Status: Former Tobacco user Cigarettes Per Day: 6 e-Cigarette/Vaping Use: Never Used Substance Use Type: Marijuana service: No Current occupational status: employed Cognitive needs: No Hearing needs: No Vision needs: Yes Female Reproductive History Menstrual Age of Menarche: 16 Duration of menses: 3-5 days control method: pills Physical Exam Vital Signs: Last Vital Signs BP 122/76 01/11/23 13:58 BMI result Body Mass Index 35.0 Assessment & Plan Assessment & Plan (1) Cervical cancer screening: Comment: 06/07/21 pap= neg, 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 Code(s): Z12.4 - Encounter for screening for malignant neoplasm of cervix (2) Well woman exam with routine gynecological exam: Code(s): Z01.419 - Encounter for gynecological examination (general) (routine) without abnormal findings (3) control counseling: Code(s): Z30.09 - Encounter for other general counseling and advice on contraception (4) Screen for sexually transmitted diseases: Code(s): Z11.3 - Encounter for screening for infections with a predominantly sexual mode of transmission (5) Anxiety: Comment: f/u with psychiatrist/therapist Code(s): F41.9 - Anxiety disorder, unspecified (6) Vaginal itching: Comment: 01/11/23-completing 2nd course of Augmentin in 6 months, for strep throat. Sending Rx for Diflucan p.r.n. Code(s): N89.8 - Other specified noninflammatory disorders of vagina (7) Counseling for control, oral contraceptives: Code(s): Z30.09 - Encounter for other general counseling and advice on contraception Orders: Orders Bacterial Vaginosis Panel 01/11/23 Z01.419 - Encounter for gynecological examination (general) (routine) without abnormal findings CT NG by PCR 01/11/23 Z01.419 - Encounter for gynecological examination (general) (routine) without abnormal findings Hepatitis B Surface Antigen 01/11/23 Z12.4 - Encounter for screening for malignant neoplasm of cervix, Z01.419 - Encounter for gynecological examination (general) (routine) without abnormal findings, Z30.09 - Encounter for other general counseling and advice on contraception, Z11.3 - Encounter for screening for infections with a predominantly sexual mode of transmission, F41.9 - Anxiety disorder, unspecified, N89.8 - Other specified noninflammatory disorders of vagina Hepatitis C Antibody 01/11/23 Z12.4 - Encounter for screening for malignant neoplasm of cervix, Z01.419 - Encounter for gynecological examination (general) (routine) without abnormal findings, Z30.09 - Encounter for other general counseling and advice on contraception, Z11.3 - Encounter for screening for infections with a predominantly sexual mode of transmission, F41.9 - Anxiety disorder, unspecified, N89.8 - Other specified noninflammatory disorders of vagina HIV Ab/Ag 01/11/23 Z12.4 - Encounter for screening for malignant neoplasm of cervix, Z01.419 - Encounter for gynecological examination (general) (routine) without abnormal findings, Z30.09 - Encounter for other general counseling and advice on contraception, Z11.3 - Encounter for screening for infections with a predominantly sexual mode of transmission, F41.9 - Anxiety disorder, unspecified, N89.8 - Other specified noninflammatory disorders of vagina Syphilis Screen 01/11/23 Z12.4 - Encounter for screening for malignant neoplasm of cervix, Z01.419 - Encounter for gynecological examination (general) (routine) without abnormal findings, Z30.09 - Encounter for other general counseling and advice on contraception, Z11.3 - Encounter for screening for infections with a predominantly sexual mode of transmission, F41.9 - Anxiety disorder, unspecified, N89.8 - Other specified noninflammatory disorders of vagina Medications: New fluconazole may repeat second dose 72 hrs after first dose if symptoms persist 150 mg PO Q3D 2 tabs 0RF 2 doses Refilled drospirenone-ethinyl estradiol 3-0.03 mg (Rachael (28)) 1 tab PO DAILY 84 tabs 4RF Coding Level of Care Code Est Pt Prev Care 18-39y(21683) Diagnoses Cervical cancer screening Z12.4 Well woman exam with routine gynecological exam Z01.419 control counseling Z30.09 Screen for sexually transmitted diseases Z11.3 Anxiety F41.9 Vaginal itching N89.8 Counseling for control, oral contraceptives Z30.09
[2023-01-11 14:47] VITALS: BMI 35.0
== END 2023-01-11 14:33 | disposition home or self-care (01) ==
LOC: HO.HWS 14:02
PROVIDERS: PCP Internal Medicine; Visit Provider Advanced Practice Midwife
DX: Z12.4 Encounter for screening for malignant neoplasm of cervix (principal); Z01.419 Encounter for gynecological examination (general) (routine) without abnormal findings; Z30.09 Encounter for other general counseling and advice on contraception; Z11.3 Encounter for screening for infections with a predominantly sexual mode of transmission; F41.9 Anxiety disorder, unspecified; N89.8 Other specified noninflammatory disorders of vagina
CPT/HCPCS: 99395

== ENCOUNTER 2023-12-06 08:35 | Outpatient (AMB) | payer BC, SELFPAY ==
[2023-12-06 08:36] VITALS: BP 106/70; PULSE 75; O2SAT 98; BMI 37.1
--- NOTE | 2023-12-06 08:36 | MHC.PC.OV ---
Vital Signs 12/06/23 08:36 Height 5 ft 11 in Weight 266 lb BMI 37.1 BP 106/70 Blood Pressure Location Lt brachial Position Sitting Pulse 75 Pulse Source Pulse Oximeter Pulse Oximetry (%) 98 Oxygen Delivery Method Room Air Intake Visit Reasons: PE Intake Note: Pt is here today for PE. Allergies No Known Allergies [No Known Allergies*] Allergy (Verified 12/06/23 08:36) Medication List - Last Reconciled 12/06/23 by Any Sky MD albuterol sulfate 90 mcg/actuation (ProAir HFA) 2 puffs inhalation QID PRN drospirenone-ethinyl estradiol 3-0.03 mg (Rachael (28)) 1 tab PO DAILY fluticasone propionate 50 mcg/actuation (Flovent Diskus) 1 inh inhalation BID ibuprofen 600 mg PO TID PRN Tobacco use date assessed: 06/22/22 HPI PE HPI Details Pt presents for PE. Pt c/o L flank pain on and off for a few weeks. Pt denies dysuria, hematuria, N/V. 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 1. Little interest or pleasure in doing things: not at all 2. Feeling down, depressed, or hopeless: not at all 3. Trouble falling or staying asleep, or sleeping too much: not at all 4. Feeling tired or having little energy: more than half the days 5. Poor appetite or overeating: not at all 6. Feeling bad about yourself - or that you are a failure or have let yourself or your family down: not at all 7. Trouble concentrating on things, such as reading the newspaper or watching television: not at all 8. Moving or speaking so slowly that other people could have noticed. Or the opposite - being so fidgety or restless that you have been moving around a lot more than usual: not at all 9. Thoughts that you would be better off or of hurting yourself in some way: not at all Total score: 2 Depression Screening Interpretation: Negative Depression Screening Done: Yes Source: Developed by Drs. Bryce Morillo, Lore De Jesus, Anderson Valdes and colleagues, with an educational zander from [employer]. Thrive Questionnaire Date Thrive assessed: 12/06/23 I am a: Patient What is your living situation today?: I have a steady place to live Within the past 12 months, did the food you bought not last and you didn't have the money to get more?: Never true Within the past 12 months, did you worry whether your food would run out before you got money to buy more?: Never true Do you have trouble paying for medicines?: No Do you have trouble getting transportation to medical appointments?: No Do you have trouble paying your heating and electricity bill?: No Do you have trouble taking care of your child, family member or friend?: No Do you have trouble with day-to-day activities such as bathing, preparing meals, shopping, managing finances, etc.?: No Are you currently unemployed and looking for a job?: No Are you interested in more education?: No Please select the resources that you would like help with: Housing/M[facility] Currently or been in a relationship where the following occur: No concerns reported THRIVE Score: 0 AUDIT C Alcohol Use Questionnaire (AUDIT-C) 1. How often do you have a drink containing alcohol?: 2-4 times a month 2. How many drinks containing alcohol do you have on a typical day when you are drinking?: 3 or 4 3. How often do you have six or more drinks on one occasion?: Monthly Total Score: 5 ALAN-7 AMB Questionnaire ALAN-7 Date ALAN - 7 assessed: 12/06/23 Feeling nervous, anxious, or on edge: 0 = Not at all Not being able to stop or control worryin = Not at all Worrying too much about different things: 0 = Not at all Trouble relaxin = Not at all Being so restless that it is hard to sit still: 0 = Not at all Becoming easily annoyed or irritable: 0 = Not at all Feeling afraid as if something awful might happen: 0 = Not at all Total ALAN-7 score (0-4 normal; 5-9 mild; 10-14 moderate; 15-21 severe): 0 Source: Developed by Drs. Bryce Morillo, Lore De Jesus, Anderson Valdes and colleagues, with an educational zander from [employer]. Review of Systems Const All systems reviewed & are unremarkable except as noted in HPI and below Eyes Reports no additional complaints ENT Reports no additional complaints Card Reports no additional complaints Resp Reports no additional complaints GI Reports no additional complaints Reports no additional complaints Physical exam (Primary Care) Vital Signs: Last Vital Signs Pulse 75 12/06/23 08:36 BP 106/70 12/06/23 08:36 Pulse Ox 98 12/06/23 08:36 Oxygen Delivery Method Room Air 12/06/23 08:36 BMI result Body Mass Index 37.1 Tobacco/Smoking Status: Tobacco use Status Tobacco use date assessed 06/22/22 12/06/23 08:36 Patient Tobacco Use Status Former Tobacco user 12/06/23 08:36 e-Cigarette/Vaping Use Never Used 12/06/23 08:36 PHQ-9: PHQ-9 Score PHQ-9: Total score 2 12/06/23 10:20 Depression Screening Interpretation: Negative Thrive Assessment: Date of Thrive Assessment Date Thrive assessed 12/06/23 12/06/23 08:42 Currently or been in a relationship where the following occur: No concerns reported Const General: no acute distress HENMT Head: Yes normal to inspection Ears: hearing grossly normal bilaterally Face and sinus: Yes normal facial exam Eyes General: appearance normal, both eyes and all related structures Neck Neck: Yes no lymphadenopathy and Yes supple Resp Effort & Inspection: normal respiratory effort Auscultation: clear to auscultation bilaterally Cardio Rhythm: regular rhythm Heart sounds: S1 normal heart sound present and S2 normal heart sound present GI Inspection: Yes normal to inspection Palpation (GI): Soft to palpation Percussion: Yes normal to percussion Auscultation: normal bowel sounds Assessment and Plan Assessment & Plan (1) Dysuria: Code(s): R30.0 - Dysuria Plan: Check UA and culture (2) Calculus of kidney: Code(s): N20.0 - Calculus of kidney Plan: Obtain renal ultrasound to evaluate for recurrent nephrolithiasis (3) Annual physical exam: Code(s): Z00.00 - Encounter for general adult medical examination without abnormal findings Plan: Well-balanced diet regular physical activity discussed with the patient return for fasting blood work (4) Asthma: Comment: mild Code(s): J45.909 - Unspecified asthma, uncomplicated Plan: Continue ProAir. (5) Diarrhea: Code(s): R19.7 - Diarrhea, unspecified Plan: For chronic diarrhea patient was advised to avoid lactose and artificial sugars, try probiotics and fiber and record food diary, check celiac disease workup Orders: Orders Urine Culture Today R30.0 - Dysuria Comprehensive Center Line. Panel Fast Today J45.909 - Unspecified asthma, uncomplicated, R30.0 - Dysuria, Z00.00 - Encounter for general adult medical examination without abnormal findings Complete Blood Count Auto Diff Today J45.909 - Unspecified asthma, uncomplicated, R30.0 - Dysuria, Z00.00 - Encounter for general adult medical examination without abnormal findings Lipid Panel Today J45.909 - Unspecified asthma, uncomplicated, R30.0 - Dysuria, Z00.00 - Encounter for general adult medical examination without abnormal findings TSH reflex Free T4 Today J45.909 - Unspecified asthma, uncomplicated, R30.0 - Dysuria, Z00.00 - Encounter for general adult medical examination without abnormal findings Celiac Diagnostic Gliadin TTG Today R19.7 - Diarrhea, unspecified Endomysial IgA rflx Titer Today R19.7 - Diarrhea, unspecified Immunoglobulin A Today R19.7 - Diarrhea, unspecified UA w Microscopic Today R30.0 - Dysuria US renal BI Today N20.0 - Calculus of kidney, R30.0 - Dysuria Transglutaminase IgA Today R19.7 - Diarrhea, unspecified Medications: Changed From albuterol sulfate 90 mcg/actuation (ProAir HFA) 2 puffs inhalation QID PRN 8.5 grams 4RF shortness of breath or wheezing To albuterol sulfate 90 mcg/actuation 2 puffs inhalation QID PRN 8.5 grams 4RF shortness of breath or wheezing From fluticasone propionate 50 mcg/actuation (Flovent Diskus) 1 inh inhalation BID 60 ea 4RF To fluticasone propionate 50 mcg/actuation 1 inh inhalation BID 60 ea 4RF Coding Level of Care Code Est Pt Prev Care 18-39y(08393) Diagnoses Dysuria R30.0 Calculus of kidney N20.0 Annual physical exam Z00.00 Asthma J45.909 Diarrhea R19.7
== END 2023-12-06 09:10 | disposition home or self-care (01) ==
PROVIDERS: PCP Internal Medicine; Visit Provider Internal Medicine
DX: R30.0 Dysuria (principal); N20.0 Calculus of kidney; Z00.00 Encounter for general adult medical examination without abnormal findings; J45.909 Unspecified asthma, uncomplicated; R19.7 Diarrhea, unspecified
CPT/HCPCS: 99395

== ENCOUNTER 2023-12-06 09:11 | Outpatient (REF) | payer BC, SELFPAY ==
[2023-12-06 10:17] LABS: MANUAL DIFF FLAG NO
[2023-12-06 10:31] LABS: Basophils Percent Auto 0.5 % (0-2); Eosinophils Percent Auto 0.5 % (0-4); Hematocrit 37.4 % (37.0-47.0); Hemoglobin 12.6 g/dl (12.0-16.0); Imm Gran Abs Auto 0.01 X10*3/uL (0.00-0.03); Imm Gran Pct Auto 0.2 % (0.0-0.4); Lymphocytes Absolute Auto 2.1 X10*3/uL (1.2-4.9); Lymphocytes Percent Auto 37.2 % (20-40); Mean Corpuscular HGB Conc 33.7 g/dl (31.0-35.0); Mean Corpuscular Hemoglobin 30.1 pg (27.0-33.0); Mean Corpuscular Volume 89.3 fL (80.0-98.0); Monocytes Absolute Auto 0.3 X10*3/uL (0.1-1.2); Monocytes Percent Auto 5.4 % (2-11); Neutrophils Absolute Auto 3.1 x10*3/uL (2.0-8.3); Neutrophils Percent Auto 56.2 % (45-73); Platelet Count 374 X10*3/uL (160-400); Red Blood Count 4.19 X10*6/uL (4.20-5.50); Red Cell Distribution Width 11.4 % (11.0-16.0); White Blood Count 5.6 X10*3/uL (4.8-10.8)
[2023-12-06 10:52] LABS: Alanine Aminotransferase 19 U/L (0-31); Albumin Level 3.9 g/dL (3.5-5.0); Alkaline Phosphatase 70 U/L (39-117); Anion Gap 9 (12-20); Aspartate Amino Transferase 16 U/L (5-31); Bilirubin Total 0.3 mg/dL (0.0-1.0); Blood Urea Nitrogen 6 mg/dL (9-16); Calcium 9.5 mg/dL (8.4-10.2); Carbon Dioxide 26 mmol/L (22-29); Chloride 107 mmol/L (96-108); Cholesterol 197 mg/dL (<200); Estimated Glomerular Filt Rate > 60; Glucose Fasting 95 mg/dL (60-99); HDL Cholesterol 78 mg/dL (>40); LDL Cholesterol Calculated 97 mg/dL (<100); Potassium 4.2 mmol/L (3.3-5.1); Sodium 138 mmol/L (135-145); Total Protein 6.9 g/dL (6.5-8.0); Triglycerides 114 mg/dL (<150)
[2023-12-06 11:06] LABS: TSH reflex Free T4 2.71 uIU/mL (0.32-4.0)
[2023-12-06 13:30] LABS: Appearance Urine Clear; Color Urine Yellow; Glucose Urine UA Negative (Negative); Leukocyte Esterase Urine Moderate (2+) (Negative); Nitrite Urine Negative (Negative); PH 7.5 (5.0-9.0); UMIC TRIGGER UA YES; Urine Blood Negative (Negative); Urine Ketones Negative (Negative); Urine Protein Negative (Neg-Trace)
[2023-12-06 14:01] LABS: Bacteria Urine 2+ (None Seen); Hyaline Casts Urine 0-2 /LPF (0-2); RBC Urine 0-2 /HPF (0-2); WBC Urine 0-5 /HPF (0-5)
[2023-12-07 20:08] LABS: Gliadin Deamidated IgA Ab <1.0 U/mL; Immunoglobulin A 170 mg/dL (47-310); Transglutaminase Ab IgG <1.0 U/mL; Transglutaminase IgA <1.0 U/mL
== END 2023-12-06 09:12 | disposition home or self-care (01) ==
LOC: HO.HMGCLDS 09:11
PROVIDERS: PCP Internal Medicine; Visit Provider Internal Medicine
DX: Z00.00 Encounter for general adult medical examination without abnormal findings (principal); R19.7 Diarrhea, unspecified; R30.0 Dysuria; J45.909 Unspecified asthma, uncomplicated
CPT/HCPCS: 36415; 80053; 80061; 81001; 82784; 84443; 85025; 86258; 86364; 87086

== ENCOUNTER 2023-12-13 09:58 | Outpatient (REF) | payer BC, SELFPAY ==
--- NOTE | ~2023-12-13 | US_ITS ---
EXAMINATION: US RETROPERITONEAL LIMITED (RENAL ONLY) CLINICAL INFORMATION: Dysuria. Kidney stone. COMPARISON: Abdomen CT from 11/23/2021 TECHNIQUE: Sonographic imaging of the kidneys. FINDINGS: RIGHT KIDNEY: 10.4 x 4.5 x 5 cm (SAG x AP x TRV). The kidney is normal in size, contour, and echogenicity. Renal cortical thickness is normal. No calculi, hydronephrosis or focal parenchymal lesions. LEFT KIDNEY: 11 x 4.3 x 5.5 cm (SAG x AP x TRV). The kidney has normal cortical thickness and cortical echotexture. 1.4 cm simple cyst is present in the interpolar area. No renal imaging follow-up is recommended for simple cysts. There are no discrete, measurable echogenic foci with distal shadowing or comet tail artifact (i.e., no stones seen). US/US renal BI IMPRESSION: No acute abnormalities in either kidney. There are no sonographically visible renal stones. No hydronephrosis.
== END 2023-12-13 09:59 | disposition home or self-care (01) ==
LOC: HO.HMGCX 09:58
PROVIDERS: PCP Internal Medicine; Visit Provider Internal Medicine
DX: N20.0 Calculus of kidney (principal); R30.0 Dysuria
CPT/HCPCS: 76775

== ENCOUNTER 2024-01-19 09:14 | Outpatient (AMB) | payer BC, SELFPAY ==
--- NOTE | 2024-01-19 09:12 | MHC.OFFVIS ---
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 Information Interpreted: clinical only Datastage Developer: Datastage Developer Present Allergies No Known Allergies [No Known Allergies*] Allergy (Verified 01/19/24 09:21) Medication List - Last Reconciled 01/19/24 by Suad Choudhary CNM albuterol sulfate 90 mcg/actuation 2 puffs inhalation QID PRN drospirenone-ethinyl estradiol 3-0.03 mg ([place]) 1 tab PO DAILY fluticasone propionate 50 mcg/actuation 1 inh inhalation BID ibuprofen 600 mg PO TID PRN Is last menstrual period known: Yes Last menstrual period: 01/11/24 Do you need a note to return to daycare/school/sports/work: No 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 And sometimes after. She also suffers from constipation and diarrhea she sometimes does not go to the bathroom for 2 or 3 days and then she can go 2 to 3 times a day. She is not taking anything to help her with the although sometimes she will take MiraLax she has been recommended by her parents to consider taking it daily but she has not adopted that yet. She says she recently started trying to better as she had gained a lot of weight over the last year she is sexually active with the same partner for the last year so as questioning and need for STD testing. Her periods are regular in and out as long since she is on the pills. She says she needed to be on antibiotics for couple around last year because of her severe strep throat but it has been better. She says she works full-time at [employer] so she does not have as much time for crafting. She says she is doing well with the pills and she has not missed any. She started this pill pack last Monday her period ended on monday. [facility] Medical History Anxiety Asthma Annual physical exam Surgical History No pertinent past surgical history Family History Paternal Uncle Substance use disorder Mental health disorder Paternal Aunt Substance use disorder Mental health disorder Maternal Aunt Substance use disorder Mental health disorder Maternal Uncle Substance use disorder Mental health disorder Maternal Grandfather Substance use disorder Paternal Grandmother Mental health disorder Maternal Grandmother Breast cancer Social History Household Members Other:: lives with parents, 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 [employer] Housing: House Alcohol intake: current Alcohol intake frequency: does not drink Patient Tobacco Use Status: Former Tobacco user Cigarettes Per Day: 6 e-Cigarette/Vaping Use: Never Used Substance Use Type: Marijuana service: No Current occupational status: employed Cognitive needs: No Hearing needs: No Vision needs: Yes Female Reproductive History Menstrual Age of Menarche: 16 Duration of menses: 3-5 days Date of last menstrual period: 01/11/24 control method: pills Total pregnancies: 0 Date of last pap smear: 06/08/21 (negative) History of abnormal pap smear: No Physical Exam Vital Signs: Last Vital Signs BP 100/62 01/19/24 09:21 BMI result Body Mass Index 36.3 Const General: healthy appearing, comfortable, no acute distress, well developed and alert Nutritional Appearance: average body habitus Orientation/consciousness: patient oriented x3 Limitations: no limitations HEENT Head: Yes normocephalic Neck Neck: Yes normal visual inspection Chest Chest palpation & inspection: normal inspection of the chest Breast/axilla inspection: normal inspection of the breasts and normal inspection of the axillae Breast/axilla palpation: normal palpation of the breasts and normal palpation of the axillae Resp Effort & Inspection: normal respiratory effort GI Inspection: Yes normal to inspection, No Abdominal wall edema and No distended Palpation (GI): Soft to palpation and nontender Other: External exam within normal limits vagina pink and moist nulliparous cervix pink moist smooth mobile nontender uterus not enlarged not tender midposition adnexa nontender good tone with Kegel General: Yes bladder normal to palpation External Female Exam: normal external appearance and normal appearance of the urethra Speculum Exam - Vagina: normal appearance of the vagina, normal palpation and normal vaginal discharge Speculum Exam - Cervix: normal appearance of the cervix, normal palpation and nontender Bimanual exam- vagina & uterus: normal bimanual exam, normal palpation, uterine size normal, bladder normal to palpation, consistency normal, normal palpation, uterine mobility normal, uterine shape normal, No Cervical tenderness present, non-tender and no cervical motion tenderness Bimanual Exam- Adnexa, other: normal adnexae, no masses, normal and No adnexal tenderness Neuro General: patient oriented x3 Assessment & Plan Assessment & Plan (1) Counseling for control, oral contraceptives: Code(s): Z30.09 - Encounter for other general counseling and advice on contraception Category: Medical (2) Screen for sexually transmitted diseases: Code(s): Z11.3 - Encounter for screening for infections with a predominantly sexual mode of transmission Category: Medical (3) Cervical cancer screening: Comment: 06/07/21 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= 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, 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 Code(s): Z12.4 - Encounter for screening for malignant neoplasm of cervix Category: Medical (4) Well woman exam with routine gynecological exam: Code(s): Z01.419 - Encounter for gynecological examination (general) (routine) without abnormal findings Category: Medical (5) control counseling: Code(s): Z30.09 - Encounter for other general counseling and advice on contraception Category: Medical (6) Vaginal discharge: Code(s): N89.8 - Other specified noninflammatory disorders of vagina Category: Medical (7) Alternating constipation and diarrhea: Code(s): R19.8 - Other specified symptoms and signs involving the digestive system and abdomen Category: Medical Plan -----Discussed in this visit the following: healthy balanced diet, regular and consistent exercise, getting recommended health screens, doing the best she can for her particular health concerns, kegel exercises, pap smear screening and followup recommendations, mammography screening and SBE, normal changes in cycles in her life stage--- . Discussed her ongoing concerns with abdominal pain and back pain and other symptoms that she feels on more the week before her. She also does experience more constipation than. She has a longstanding history of constipation and then it alternates with diarrhea she is trying to make some dietary changes. She has not really added exercise into her gene yet she has a follow-up appointment with her primary care provider she says she has had lots blood work checking for celiac disease but it was negative. 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 She is in a steady relationship and was not sure she needed testing for STIs but she did accepted and accepted orders for blood work as well. She sometimes has some vaginal itching as in the last week or so her discharge appears fairly within normal limits but it could be consistent with extremely mild yeast though it is not reddened inflamed at all and is no discharge that is in any way suspicious of BV I will offer her treatment for yeast that she can use p.r.n. when she needs it with Monistat 7. We will send refill for her control pills as well. She was quite sure she has not missed in pills at all. Orders: Orders CT NG by PCR Today N89.8 - Other specified noninflammatory disorders of vagina Bacterial Vaginosis Panel Today N89.8 - Other specified noninflammatory disorders of vagina Hepatitis C Antibody Today R19.8 - Other specified symptoms and signs involving the digestive system and abdomen, Z01.419 - Encounter for gynecological examination (general) (routine) without abnormal findings, Z11.3 - Encounter for screening for infections with a predominantly sexual mode of transmission, Z12.4 - Encounter for screening for malignant neoplasm of cervix, Z30.09 - Encounter for other general counseling and advice on contraception Hepatitis B Surface Antigen Today R19.8 - Other specified symptoms and signs involving the digestive system and abdomen, Z01.419 - Encounter for gynecological examination (general) (routine) without abnormal findings, Z11.3 - Encounter for screening for infections with a predominantly sexual mode of transmission, Z12.4 - Encounter for screening for malignant neoplasm of cervix, Z30.09 - Encounter for other general counseling and advice on contraception HIV Ab/Ag Today R19.8 - Other specified symptoms and signs involving the digestive system and abdomen, Z01.419 - Encounter for gynecological examination (general) (routine) without abnormal findings, Z11.3 - Encounter for screening for infections with a predominantly sexual mode of transmission, Z12.4 - Encounter for screening for malignant neoplasm of cervix, Z30.09 - Encounter for other general counseling and advice on contraception Syphilis Screen Today R19.8 - Other specified symptoms and signs involving the digestive system and abdomen, Z01.419 - Encounter for gynecological examination (general) (routine) without abnormal findings, Z11.3 - Encounter for screening for infections with a predominantly sexual mode of transmission, Z12.4 - Encounter for screening for malignant neoplasm of cervix, Z30.09 - Encounter for other general counseling and advice on contraception Medications: New miconazole nitrate 2% (Miconazole-7) 1 appful vaginal BEDTIME 7 days 45 grams 2RF drospirenone-ethinyl estradiol 3-0.03 mg ([place]) 1 tab PO DAILY 84 tabs 4RF Coding Level of Care Code Est Pt Prev Care 18-39y(16845) Diagnoses Counseling for control, oral contraceptives Z30.09 Screen for sexually transmitted diseases Z11.3 Cervical cancer screening Z12.4 Well woman exam with routine gynecological exam Z01.419 control counseling Z30.09 Vaginal discharge N89.8 Alternating constipation and diarrhea R19.8
[2024-01-19 09:21] VITALS: BP 100/62; BMI 36.3
== END 2024-01-19 10:27 | disposition home or self-care (01) ==
PROVIDERS: PCP Internal Medicine; Visit Provider Advanced Practice Midwife
DX: Z01.419 Encounter for gynecological examination (general) (routine) without abnormal findings (principal); N89.8 Other specified noninflammatory disorders of vagina; R19.8 Other specified symptoms and signs involving the digestive system and abdomen
CPT/HCPCS: 99395

== ENCOUNTER 2024-01-19 09:14 | Outpatient (REF) | payer BC, SELFPAY ==
[2024-01-20 06:21] LABS: CT PCR NOT DETECTED (Not Detect.); NG PCR NOT DETECTED (Not Detect.)
[2024-01-20 11:09] LABS: Bacterial Vaginosis PCR NEGATIVE (Negative); Candida Group PCR NOT DETECTED (Not Detect); Candida glab krusei PCR NOT DETECTED (Not Detect); Trichomonas vaginalis PCR NOT DETECTED (Not Detect)
== END 2024-01-19 09:15 | disposition home or self-care (01) ==
LOC: HO.LAB 09:14
PROVIDERS: PCP Internal Medicine; Visit Provider Advanced Practice Midwife
DX: N89.8 Other specified noninflammatory disorders of vagina (principal)
CPT/HCPCS: 0352U; 87491; 87591

== ENCOUNTER 2024-02-06 10:54 | Outpatient (AMB) | payer BC, SELFPAY ==
[2024-02-06 10:56] VITALS: BP 106/70; PULSE 85; O2SAT 99; BMI 36.3
--- NOTE | 2024-02-06 10:56 | MHC.PC.OV ---
Vital Signs 02/06/24 10:56 Height 5 ft 11 in Weight 260 lb BMI 36.3 BP 106/70 Blood Pressure Location Lt brachial Position Sitting Pulse 85 Pulse Source Pulse Oximeter Pulse Oximetry (%) 99 Oxygen Delivery Method Room Air Intake Visit Reasons: 2 month follow up Intake Note: Pt is here today for 2 months follow up visit. Allergies No Known Allergies [No Known Allergies*] Allergy (Verified 02/06/24 10:58) Medication List - Last Reconciled 02/06/24 by Any Sky MD albuterol sulfate 90 mcg/actuation 2 puffs inhalation QID PRN drospirenone-ethinyl estradiol 3-0.03 mg ([place]) 1 tab PO DAILY fluticasone propionate 50 mcg/actuation 1 inh inhalation BID ibuprofen 600 mg PO TID PRN miconazole nitrate 2% (Miconazole-7) 1 appful vaginal BEDTIME 7 days Tobacco use date assessed: 02/06/24 Dental Screening Dental Screen Date: 02/06/24 Did you have a dental visit in the last 12 months?: Yes Did you have a dental problem in the last 6 months where you did not have access to dental care?: No Was dental information given to patient?: Patient has dentist HPI 2 month follow up HPI Details Pt presents for a follow-up. She c/o persistent bloating after eating intermittent heartburn once or twice a week, relieved with Tums no dysphagia odynophagia, intermittent constipation followed by diarrhea but no hematochezia melena weight loss nausea or vomiting. 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 1. Little interest or pleasure in doing things: not at all 2. Feeling down, depressed, or hopeless: not at all 3. Trouble falling or staying asleep, or sleeping too much: not at all 4. Feeling tired or having little energy: more than half the days 5. Poor appetite or overeating: not at all 6. Feeling bad about yourself - or that you are a failure or have let yourself or your family down: not at all 7. Trouble concentrating on things, such as reading the newspaper or watching television: not at all 8. Moving or speaking so slowly that other people could have noticed. Or the opposite - being so fidgety or restless that you have been moving around a lot more than usual: not at all 9. Thoughts that you would be better off or of hurting yourself in some way: not at all Total score: 2 Depression Screening Interpretation: Negative Depression Screening Done: Yes [id number] - PHQ-9 Billing: Yes Source: Developed by Drs. Bryce Morillo, Lore De Jesus, Anderson Valdes and colleagues, with an educational zander from [employer]. Thrive Questionnaire Date Thrive assessed: 12/06/23 I am a: Patient What is your living situation today?: I have a steady place to live Within the past 12 months, did the food you bought not last and you didn't have the money to get more?: Never true Within the past 12 months, did you worry whether your food would run out before you got money to buy more?: Never true Do you have trouble paying for medicines?: No Do you have trouble getting transportation to medical appointments?: No Do you have trouble paying your heating and electricity bill?: No Do you have trouble taking care of your child, family member or friend?: No Do you have trouble with day-to-day activities such as bathing, preparing meals, shopping, managing finances, etc.?: No Are you currently unemployed and looking for a job?: No Are you interested in more education?: No Please select the resources that you would like help with: None Currently or been in a relationship where the following occur: No concerns reported THRIVE Score: 0 AUDIT C Alcohol Use Questionnaire (AUDIT-C) 1. How often do you have a drink containing alcohol?: 2-4 times a month 2. How many drinks containing alcohol do you have on a typical day when you are drinking?: 3 or 4 3. How often do you have six or more drinks on one occasion?: Monthly Total Score: 5 ALAN-7 AMB Questionnaire ALAN-7 Date ALAN - 7 assessed: 12/06/23 Feeling nervous, anxious, or on edge: 0 = Not at all Not being able to stop or control worryin = Not at all Worrying too much about different things: 0 = Not at all Trouble relaxin = Not at all Being so restless that it is hard to sit still: 0 = Not at all Becoming easily annoyed or irritable: 0 = Not at all Feeling afraid as if something awful might happen: 0 = Not at all Total ALAN-7 score (0-4 normal; 5-9 mild; 10-14 moderate; 15-21 severe): 0 Source: Developed by Drs. Bryce Morillo, Lore De Jesus, Anderson Valdes and colleagues, with an educational zander from [employer]. Review of Systems Const All systems reviewed & are unremarkable except as noted in HPI and below ENT Reports no additional complaints Card Reports no additional complaints Resp Reports no additional complaints GI Reports no additional complaints Reports no additional complaints Physical exam (Primary Care) Vital Signs: Last Vital Signs Pulse 85 02/06/24 10:56 BP 106/70 02/06/24 10:56 Pulse Ox 99 02/06/24 10:56 Oxygen Delivery Method Room Air 02/06/24 10:56 BMI result Body Mass Index 36.3 Tobacco/Smoking Status: Tobacco use Status Tobacco use date assessed 02/06/24 02/06/24 11:01 Patient Tobacco Use Status Former Tobacco user 02/06/24 11:01 e-Cigarette/Vaping Use Never Used 02/06/24 11:01 PHQ-9: PHQ-9 Score PHQ-9: Total score 2 02/06/24 11:01 Depression Screening Interpretation: Negative Thrive Assessment: Date of Thrive Assessment Date Thrive assessed 12/06/23 02/06/24 11:01 Currently or been in a relationship where the following occur: No concerns reported Const General: no acute distress Neck Neck: Yes supple Resp Effort & Inspection: normal respiratory effort Auscultation: clear to auscultation bilaterally Cardio Rhythm: regular rhythm Heart sounds: S1 normal heart sound present and S2 normal heart sound present GI Inspection: Yes normal to inspection Palpation (GI): Soft to palpation Percussion: Yes normal to percussion Auscultation: normal bowel sounds Assessment and Plan Assessment & Plan (1) IBS (irritable bowel syndrome): Code(s): K58.9 - Irritable bowel syndrome without diarrhea Plan: WELL-BALANCED HIGH-FIBER DIET DISCUSSED WITH THE PATIENT SHE WAS ADVISED TO TAKE CITRUCEL DAILY TO PREVENT CONSTIPATION. For intermittent GERD patient was advised to take Pepcid daily for 1 month. If her symptoms persist she will be referred to GI Coding Level of Care Code Est Pt Level 3 (66895) Diagnoses IBS (irritable bowel syndrome) K58.9
== END 2024-02-06 11:27 | disposition home or self-care (01) ==
PROVIDERS: PCP Internal Medicine; Visit Provider Internal Medicine
DX: K58.9 Irritable bowel syndrome, unspecified (principal)

== ENCOUNTER → 2024-02-06 10:54 | Outpatient (BNVA) | payer BC, SELFPAY | PROVIDERS: PCP Internal Medicine; Visit Provider Internal Medicine | DX: K58.9 Irritable bowel syndrome, unspecified (principal) | CPT/HCPCS: 96127 ==